=== PATIENT | male | born 1945 | race Caucasian/White ===

== ENCOUNTER → 2018-07-23 | Outpatient (CLI) | payer MEDICARE, OTHER | END | disposition home or self-care (01) | LOC: Rad HDHVI 12:48 | PROVIDERS: ATTEND Internal Medicine Cardiovascular Disease | DX: I08.0 Rheumatic disorders of both mitral and aortic valves (principal); J32.9 Chronic sinusitis, unspecified; R00.2 Palpitations; I10 Essential (primary) hypertension; J34.2 Deviated nasal septum | CPT/HCPCS: 70486; 93306 ==

== ENCOUNTER → 2018-09-18 | Outpatient (CLI) | payer MEDICARE, OTHER ==
[~2018-09-18] VITALS: Ht 172.7 cm; Wt 83.9 kg
== END | disposition home or self-care (01) ==
LOC: Rad HDHVI 07:49
PROVIDERS: ATTEND Internal Medicine Cardiovascular Disease
DX: I35.0 Nonrheumatic aortic (valve) stenosis (principal); I20.0 Unstable angina; N40.0 Benign prostatic hyperplasia without lower urinary tract symptoms; J32.9 Chronic sinusitis, unspecified; E78.00 Pure hypercholesterolemia, unspecified
CPT/HCPCS: 78452; 93017; 96374; A9500

== ENCOUNTER → 2019-10-20 | Outpatient (CLI) | payer MEDICARE, OTHER | END | disposition home or self-care (01) | LOC: Rad HDHVI 08:05 | PROVIDERS: ATTEND Internal Medicine Cardiovascular Disease | DX: I35.1 Nonrheumatic aortic (valve) insufficiency (principal); I10 Essential (primary) hypertension; I35.0 Nonrheumatic aortic (valve) stenosis | CPT/HCPCS: 93306 ==

== ENCOUNTER → 2020-01-21 | Outpatient (CLI) | payer MEDICARE, OTHER | END | disposition home or self-care (01) | LOC: Rad HDHVI 14:05 | PROVIDERS: ATTEND Internal Medicine Cardiovascular Disease | DX: I10 Essential (primary) hypertension (principal) ==

== ENCOUNTER → 2021-09-04 | Outpatient (CLI) | payer MEDICARE | END | disposition home or self-care (01) | LOC: Rad HDHVI 10:00 | PROVIDERS: ATTEND Internal Medicine Cardiovascular Disease | DX: I10 Essential (primary) hypertension (principal); E78.5 Hyperlipidemia, unspecified | CPT/HCPCS: 93880 ==

== ENCOUNTER → 2021-09-05 | Outpatient (CLI) | payer MEDICARE | END | disposition home or self-care (01) | LOC: Rad HDHVI 09:57 | PROVIDERS: ATTEND Internal Medicine Cardiovascular Disease | DX: I08.3 Combined rheumatic disorders of mitral, aortic and tricuspid valves (principal) | CPT/HCPCS: 93306 ==

== ENCOUNTER → 2021-09-07 | Outpatient (CLI) | payer MEDICARE ==
[~2021-09-07] VITALS: Ht 172.7 cm; Wt 93.4 kg
== END | disposition home or self-care (01) ==
LOC: Rad HDHVI 08:57
PROVIDERS: ATTEND Internal Medicine Cardiovascular Disease
DX: I20.0 Unstable angina (principal); E78.5 Hyperlipidemia, unspecified; G45.9 Transient cerebral ischemic attack, unspecified; R00.2 Palpitations; R06.02 Shortness of breath
CPT/HCPCS: 78452; 93017; 96374; A9500

== ENCOUNTER 2024-04-06 20:47 | Inpatient (IN) | payer MEDICARE ==
[~2024-04-06] VITALS: Ht 172.7 cm; Wt 96.4 kg
[2024-04-06 21:55] LABS: Basophils # (auto) 0 10 ^3/uL (0-0.2); Basophils % (auto) 0.7 % (0.0-2.0); Eosinophils # (auto) 0 10 ^3/uL (0-0.8); Eosinophils % (auto) 0.1 % (0.0-7.0); Hematocrit 43.7 % (41.0-53.0); Hemoglobin 15.1 g/dL (13.5-17.5); Lymphocytes # (auto) 0.2 10 ^3/uL (0.4-5.4); Lymphocytes % (auto) 2.9 % (10.0-50.0); Mean Corpuscular Hemoglobin 31.7 pg (28.0-32.0); Mean Corpuscular Hgb Conc. 34.6 g/dL (32.0-36.0); Mean Corpuscular Volume 91.7 fL (80.0-100.0); Monocytes # (auto) 0.3 10 ^3/uL (0-1.3); Monocytes % (auto) 6.1 % (0.0-12.0); Neutrophils # (auto) 4.9 10 ^3/uL (1.6-8.6); Neutrophils % (auto) 90.2 % (37.0-80.0); Platelet Count (auto) 112 10^3/uL (140-450); Red Blood Cells 4.77 10^6/uL (4.5-5.90); White Blood Cell 5.4 10^3/uL (4.4-10.8)
--- NOTE | 2024-04-06 22:00 | DVH ---
CHEST RADIOGRAPH Indication: gen weak Technique: Single frontal view of the chest was obtained COMPARISON: None FINDINGS: Lines and Tubes: None Lungs: Clear Pleura: No effusion. No pneumothorax. Cardiomediastinal contours: Unremarkable Bones: Unremarkable IMPRESSION: 1. No acute disease.
[2024-04-06 22:04] LABS: Chloride 101 mmol/L (98-107); Potassium 3.9 mmol/L (3.5-5.1); Sodium 135 mmol/L (136-145)
[2024-04-06 22:05] LABS: Anion Gap 9 (5-15); Calcium 9.3 mg/dL (8.7-10.4); Carbon Dioxide 25 mmol/L (20-31)
--- NOTE | 2024-04-06 22:06 | DVH ---
EXAM: CT HEAD WITHOUT CONTRAST INDICATION: gen weak, worse in BLE TECHNIQUE: CT of the head without intravenous contrast. Radiation Dose : 1. Head: CT Dose: CTDI volume is 56 mGy. Dose-length product is 900 mGy*cm The dose indicators for CT are the volume Computed Tomography (CT) Dose Index (CTDIvol) and the Dose Length Product (DLP), and are measured in units of mGy and mGy-cm, respectively. These indicators are not patient dose, but values generated from the CT scanner acquisition factors. The report includes radiation exposure data for exposures received during this examination. COMPARISON: None FINDINGS: There is no evidence of acute intracranial hemorrhage, extra-axial collection, mass effect, midline s hift, herniation or hydrocephalus. The ventricles, sulci and cisterns are age appropriate. The moy-white differentiation is intact. Patchy periventricular and subcortical white matter hypoattenuation is nonspecific but may be related to small vessel ischemic disease. The visualized paranasal sinuses and mastoid air cells are clear. The surrounding soft tissues and osseous structures are unremarkable. IMPRESSION: No acute intracranial abnormality. Radiation optimization: All CT scans at this facility use at least one of these dose optimization coleman hniques: automated exposure control mA and/or kV adjustment per patient size (includes targeted exam s where dose is matched to clinical indication) or iterative reconstruction.
[2024-04-06 22:10] LABS: BUN/Creatinine Ratio 14.4 (10.0-20.0); Blood Urea Nitrogen 15 mg/dL (9-23); Glucose 130 mg/dL (74-106)
--- NOTE | 2024-04-06 23:06 | ED.PDOC ---
History of Present Illness HPI Comments 78 y/o M, with a BPH and cardiac valve disease, presents with daughter for c/o generalized weakness and multiple falls today. Patient and daughter state he is normally able to ambulate without assistance. Daughter states he woke up with a fever of 101 this morning, then intermittently throughout the day was having lower extremity weakness and falls. She states that intermittently he is able to stand and walk unassisted, however will later develop lower extremity weakness and fall. Patient states he is currently feeling too weak in his legs to ambulate. He denies any pain. He states he has had some nausea but no vomiting. He denies any diarrhea, constipation or urinary symptoms. He denies any pain or injury due to falling. Chief Complaint: General Weakness Time Seen by MD: 23:00 Reviewed Notes: Nurses Notes, Medications, Allergies Allergies: Coded Allergies: Levofloxacin (Verified Allergy, Unknown, 09/18/18) Quinolones (Verified Allergy, Unknown, 09/18/18) Information Source: Patient Mode of Arrival: Wheelchair Severity: Moderate Timing: Other (see HPI) Duration: Other (see HPI) Prehospital treatment: Other (see HPI) Past Medical History Past Medical History (Other): BPH, heart murmurs, heart valve prolapse Surgical History: Hernia Repair Family History Family History: Unknown Social History Smoker: Non-Smoker Alcohol: Denies ETOH Use Drugs: Denies Drug Use Lives In: Home Constitutional: denies: chills, diaphoresis, fatigue, fever, malaise, sweats, weakness, others EENTM: denies: blurred vision, double vision, ear bleeding, ear discharge, ear drainage, ear pain, ear ringing, eye pain, eye redness, hearing loss, mouth pain, mouth swelling, nasal discharge, nose bleeding, nose congestion, nose pain, photophobia, tearing, throat pain, throat swelling, voice changes, others Respiratory: denies: cough, hemoptysis, orthopnea, SOB at rest, shortness of breath, SOB with excertion, stridor, wheezing, others Cardiovascular: denies: chest pain, dizzy spells, diaphoresis, Dyspnea on exertion, edema, irregular heart beat, left arm pain, lightheadedness, palpitations, PND, syncope, others Gastrointestinal: denies: abdomen distended, abdominal pain, blood streaked bowels, constipated, diarrhea, dysphagia, difficulty swallowing, hematemesis, melena, nausea, poor appetite, poor fluid intake, rectal bleeding, rectal pain, vomiting, others Genitourinary: denies: burning, dysuria, flank pain, frequency, hematuria, incontinence, penile discharge, penile sore, pain, testicle pain, testicle swelling, urgency, others Neurological: denies: dizziness, fainting, headache, left sided numbness, left sided weakness, numbness, paresthesia, pre-existing deficit, right sided numbness, right sided weakness, seizure, speech problems, tingling, tremors, weakness, others Musculoskeletal: denies: back pain, gout, joint pain, joint swelling, muscle pain, muscle stiffness, neck pain, others Integumetry: denies: bruises, change in color, change in hair/nails, dryness, laceration, lesions, lumps, rash, wounds, others Allergic/Immunocompromised: denies: Difficulty Healing, Frequent Infections, Hives, Itching, others Hematologic/Lymphatic: denies: anemia, blood clots, easy bleeding, easy bruising, swollen glands, others Endocrine: denies: excessive hunger, excessive sweating, excessive thirst, excessive urination, flushing, intolerance to cold, intolerance to heat, unexplained weight gain, unexplained weight loss, others Psychiatric: denies: anxiety, bipolar disorder, depression, hopeless, panic disorder, schizophrenia, sleepless, suicidal, others All Other Systems: Reviewed and Negative Physical Exam General Appearance: No Apparent Distress HEENT: Normal ENT Inspection Neck: Full Range of Motion, Non-Tender, Normal Inspection, Supple Respiratory: Lungs Clear, No Accessory Muscle Use, No Respiratory Distress, Normal Breath Sounds Cardiovascular: No Edema, No JVD, Regular Rate/Rhythm Breast Exam: Deferred Gastrointestinal: Non Tender, Soft Genitalia: Deferred Pelvic: Deferred Rectal: Deferred Extremities: Normal inspection, Normal range of motion, Non-tender, No pedal edema Neurologic: Alert, Normal Affect, Normal Mood, No Sensory Deficits, Other (Moves all extremities. Able to stand, but requires assistance.) Cerebellar Function: NOT DONE Reflexes: NOT DONE Skin: Dry, Normal Color, Warm Lymphatic: NOT DONE Was a procedure done? Was a procedure done?: No EKG EKG : Comments Sinus tach with possible supraventricular bigeminy, rate 101, normal intervals, left axis deviation, possible old inferior infarct, nonspecific T change. Differential Dx Considerations may include: UTI, viral syndrome, other infectious process such as pneumonia, hypovolemia, electrolyte imbalance, CVA, TIA, arrhythmia, OK, among others X-Ray, Labs, Meds, VS Vital Signs Date Time Temp Pulse Resp B/P (MAP) Pulse Ox O2 Delivery O2 Flow Rate FiO2 04/06/24 21:09 101 04/06/24 21:04 99.6 99 16 133/57 (82) 95 Lab Test 04/06/24 23:27 04/06/24 22:38 04/06/24 21:33 04/06/24 21:03 Range/Units Urine Color Yellow Yellow Urine Clarity Turbid H Clear Urine pH 5.5 5.0-9.0 Urine Specific [place] 1.028 1.001-1.035 Urine Protein 1+ H Negative Urine Ketones 1+ H Negative Urine Blood Negative Negative /uL Urine Nitrite Negative Negative Urine Bilirubin Negative Negative Urine Urobilinogen Normal Negative mg/dL Urine Leukocyte Esterase Negative Negative /uL Urine RBC 1 0 - 3 /hpf Urine WBC 3 0 - 3 /hpf Urine Squamous Epithelial Cells Few <5 /hpf Urine Bacteria None seen None Seen /hpf Urine Mucus Many None Seen Urine Glucose Normal Normal mg/dL Troponin I High Sensitivity 38 37 </=54 ng/L White Blood Count 5.4 4.4-10.8 10^3/uL Red Blood Count 4.77 4.5-5.90 10^6/uL Hemoglobin 15.1 13.5-17.5 g/dL Hematocrit 43.7 41.0-53.0 % Mean Corpuscular Volume 91.7 80.0-100.0 fL Mean Corpuscular Hemoglobin 31.7 28.0-32.0 pg Mean Corpuscular Hemoglobin Concent 34.6 32.0-36.0 g/dL Red Cell Distribution Width 14.0 11.8-14.3 % Platelet Count 112 L 140-450 10^3/uL Mean Platelet Volume 8.3 6.9-10.8 fL Neutrophils (%) (Auto) 90.2 H 37.0-80.0 % Lymphocytes (%) (Auto) 2.9 L 10.0-50.0 % Monocytes (%) (Auto) 6.1 0.0-12.0 % Eosinophils (%) (Auto) 0.1 0.0-7.0 % Basophils (%) (Auto) 0.7 0.0-2.0 % Neutrophils # (Auto) 4.9 1.6-8.6 10 ^3/uL Lymphocytes # (Auto) 0.2 L 0.4-5.4 10 ^3/uL Monocytes # (Auto) 0.3 0-1.3 10 ^3/uL Eosinophils # (Auto) 0 0-0.8 10 ^3/uL Basophils # (Auto) 0 0-0.2 10 ^3/uL Nucleated Red Blood Cells 0.0 % Sodium Level 135 L 136-145 mmol/L Potassium Level 3.9 3.5-5.1 mmol/L Chloride Level 101 98-107 mmol/L Carbon Dioxide Level 25 20-31 mmol/L Anion Gap 9 5-15 Blood Urea Nitrogen 15 9-23 mg/dL Creatinine 1.04 0.700-1.30 mg/dL Glomerular Filtration Rate Calc 74 >90 mL/min BUN/Creatinine Ratio 14.4 10.0-20.0 Serum Glucose 130 H 74-106 mg/dL Calcium Level 9.3 8.7-10.4 mg/dL B-Type Natriuretic Peptide 123.23 0-100 pg/mL POC Glucose 126 H 70-106 mg/dl [place] [id number] Ph: [phone] DIAGNOSTIC IMAGING Diagnostic Imaging Report : [id number] Signed PATIENT: SANDIE STEIN ACCT: [id number] UNIT: [id number] : 1945 LOC: ER ROOM / BED: / AGE / SEX: 78 / M ADM STATUS: REG ER SERVICE 24 ORDERING PHYSICIAN: DAWIT TORRES MD PROCEDURE(s): HWOCT - HEAD WITHOUT CONTRAST REASON: gen weak, worse in BLE ORDER NUMBER(s): [id number], ACCESSION NUMBER(s): [id number] EXAM: CT HEAD WITHOUT CONTRAST INDICATION: gen weak, worse in BLE TECHNIQUE: CT of the head without intravenous contrast. Radiation Dose : 1. Head: CT Dose: CTDI volume is 56 mGy. Dose-length product is 900 mGy*cm The dose indicators for CT are the volume Computed Tomography (CT) Dose Index (CTDIvol) and the Dose Length Product (DLP), and are measured in units of mGy and mGy-cm, respectively. These indicators are not patient dose, but values generated from the CT scanner acquisition factors. The report includes radiation exposure data for exposures received during this examination. COMPARISON: None FINDINGS: There is no evidence of acute intracranial hemorrhage, extra-axial collection, mass effect, midline shift, herniation or hydrocephalus. The ventricles, sulci and cisterns are age appropriate. The moy-white differentiation is intact. Patchy periventricular and subcortical white matter hypoattenuation is nonspecific but may be related to small vessel ischemic disease. The visualized paranasal sinuses and mastoid air cells are clear. The surrounding soft tissues and osseous structures are unremarkable. IMPRESSION: No acute intracranial abnormality. Radiation optimization: All CT scans at this facility use at least one of these dose optimization techniques: automated exposure control mA and/or kV adjustment per patient size (includes targeted exams where dose is matched to clinical indication) or iterative reconstruction. ATED BY: RUFINO YU DO DICTATED DATE/TIME: 04/06/242203 SIGNED BY: RUFINO YU DO SIGNED DATE/TIME: 04/06/242203 CC: [place] [id number] Ph: [phone] DIAGNOSTIC IMAGING Diagnostic Imaging Report : [id number] Signed PATIENT: SANDIE STEIN ACCT: [id number] UNIT: [id number] : 1945 LOC: ER ROOM / BED: / AGE / SEX: 78 / M ADM STATUS: REG ER SERVICE 23 ORDERING PHYSICIAN: DAWIT TORRES MD PROCEDURE(s): CXRP - CHEST PORTABLE REASON: gen weak ORDER NUMBER(s): [id number], ACCESSION NUMBER(s): [id number] CHEST RADIOGRAPH Indication: gen ishmael Technique: Single frontal view of the chest was obtained COMPARISON: None FINDINGS: Lines and Tubes: None Lungs: Clear Pleura: No effusion. No pneumothorax. Cardiomediastinal contours: Unremarkable Bones: Unremarkable IMPRESSION: 1. No acute disease. ATED BY: DANIELLE MCKINNEY MD DICTATED DATE/TIME: 04/06/242157 SIGNED BY: DANIELLE MCKINNEY MD SIGNED DATE/TIME: 04/06/242157 CC: X-Ray, Labs, Meds, VS Comment 78-year-old male with a history of prostate enlargement and cardiac valve disease brought in by daughter for evaluation of generalized weakness, greatest in the lower extremities, and multiple falls today. Vitals remarkable for temperature 99.6, heart rate 101, BP 133/57 Exam remarkable for inability to stand without assistance Head CT unremarkable Chest x-ray unremarkable EKG sinus tach, possible supraventricular bigeminy, nonspecific T changes CBC, basic metabolic panel, BNP and serial troponins unremarkable for any abnormality of acute significance UA protein, ketones and mucous Patient treated with the following in the ED: 1 L 0.9 normal saline IV bolus On re-evaluation, patient is exam is unchanged. Plan is to admit the patient for neurology and PT OT evaluation. Time of 1ST Reevaluation: 23:30 Reevaluation 1ST: Unchanged Time of 2ND Reevaluation: 01:07 Reevaluation 2ND: Unchanged Patient Education/Counseling: Diagnosis, Treatment Family Education/Counseling: No Family Present Departure 1 Departure Time of Disposition: 01:07 Impression: Primary Impression: Lower extremity weakness Qualified Codes: R29.898 - Other symptoms and signs involving the musculoskeletal system Additional Impression: Frequent falls Disposition: 09 ADMITTED INPATIENT Admit to: Tele Condition: Guarded Critical Care Note Critical Care Time?: No Stability Stability form required: No Heart Score Heart Score: Heart Score Response (Comments) Value History N/A 0 EKG N/A 0 Age N/A 0 Risk Factors N/A 0 Troponin N/A 0 Total 0 I personally scribed for DAWIT TORRES MD ([email or web address]) on 04/06/24 at 23:06. Electronically submitted by Juarez Quick ([email or web address]). I personally scribed for DAWIT TORRES MD ([email or web address]) on 04/06/24 at 23:21. Electronically submitted by Juarez Quick ([email or web address]). DAWIT TORRES MD Apr 06, 2024 23:06
[2024-04-06 23:27] LABS: Urine Bacteria None Seen /hpf (None Seen)
[2024-04-06 23:46] LABS: Urine Blood Negative /uL (Negative); Urine Clarity Turbid (Clear); Urine Color Yellow (Yellow); Urine Mucus MANY (None Seen); Urine Protein, UAD 1+ (Negative); Urine Specific Gravity 1.028 (1.001-1.035); Urine Urobilinogen Normal (Negative); Urine WBC 3 /hpf (0 - 3); Urine pH 5.5 (5.0-9.0)
[2024-04-07] VITALS (8 sets, daily range): BP systolic 117–182; BP diastolic 52–67; PULSE 81–107; RESP 13–20; TEMP 98–102.6; O2SAT 91–97
[2024-04-07] MEDS ORDERED: ONDANSETRON HCL 4 MG/2 ML VIAL IV PRN (01:15)
[2024-04-07] MEDS: SODIUM CHLORIDE 0.9% 1,000 ML IV ONE (01:15)
[2024-04-07] MEDS ORDERED: MORPHINE SULFATE INJ 2 MG/ml SYRG IV PRN ×2 (01:15)
[2024-04-07] MEDS ORDERED: ENOXAPARIN SOD 40 MG/0.4 ML SYRINGE SC SCH (01:15)
[2024-04-07] MEDS ORDERED: NITROGLYCERIN 0.4 MG SL TAB SL PRN (01:15)
--- NOTE | 2024-04-07 02:06 | DVHHPRES ---
History of Present Illness Resident Creating Document: ALVARO AMOR Reason for Visit: pre- syncope History of Present Illness 78-year-old male patient with past medical history of benign prostatic hyperplasia changes and cardiac valve disease who was brought to the emergency department by his daughter with a chief complaint of generalized weakness and multiple fall episodes today after he started feeling weakness in his lower extremities. Patient is able to ambulate without assistance, patient's daughter reports that the patient has had similar episodes in the past but never like this, he mentioned he felt lhis knees went backwards and he started feeling un steady afterwards. Patient also reports to having some nausea and fever. He denies any chest pain, palpitations abdominal pain, or shortness of breadth. Past Medical History Benign prostatic hyperplasia Type 1 obesity Cardiovascular disease Bilateral leg weakness Hypertension Past Surgical History Cataract surgery Family History: None Smoke: No ALCOHOL: none Drugs: None Past Social History Patient's life with his daughter Review of Systems Constitutional: Yes: Fever Respiratory: Other Genitourinary: Other Musculoskeletal: other Skin: Other Neurological: Weakness Allergies: Coded Allergies: Levofloxacin (Verified Allergy, Unknown, 09/18/18) Quinolones (Verified Allergy, Unknown, 09/18/18) Medications Current Medications Medications Dose Ordered Sig/Antonette Route Start Time Stop Time Status Last Admin Dose Admin Sodium Chloride 1,000 ml @ 60 mls/hr [id number] IV 04/07/24 01:15 Ondansetron HCl 4 mg Q4HP PRN IV 04/07/24 01:15 Acetaminophen 650 mg Q6HP PRN PO 04/07/24 01:15 Morphine Sulfate 2 mg Q4HPRN PRN IV 04/07/24 01:15 Enoxaparin Sodium 40 mg DAILY SC 04/07/24 01:15 Nitroglycerin 0.4 mg Q5MINP PRN SL 04/07/24 01:15 Morphine Sulfate 2 mg Q30M PRN IV 04/07/24 01:15 Exam Vital Signs Vital Signs Date Time Temp Pulse Resp B/P (MAP) Pulse Ox O2 Delivery O2 Flow Rate FiO2 04/06/24 21:09 101 04/06/24 21:04 99.6 16 133/57 (82) 95 Exam Examination General Appearance: Alert, Oriented X3, Cooperative, No acute distress HEENT: EOMI Respiratory: Clear to auscultation, Normal air movement Cardiovascular: Regular rate, Normal S1, Normal S2 Abdominal: Normal bowel sounds Extremities: No cyanosis, No edema, Normal pulses, No tenderness/swelling Skin: No rashes, No breakdown Neuro:Normal speech, Strength at 5/5 X4 ext, Normal tone, Sensation intact, Cranial nerves 3-12 NL, Reflexes 2+ Psych/Mental Status: Mental status NL, Mood NL Labs/Xrays Labs Test 04/06/24 23:27 04/06/24 22:38 04/06/24 21:33 04/06/24 21:03 Range/Units Urine Color Yellow Yellow Urine Clarity Turbid H Clear Urine pH 5.5 5.0-9.0 Urine Specific [place] 1.028 1.001-1.035 Urine Protein 1+ H Negative Urine Ketones 1+ H Negative Urine Blood Negative Negative /uL Urine Nitrite Negative Negative Urine Bilirubin Negative Negative Urine Urobilinogen Normal Negative mg/dL Urine Leukocyte Esterase Negative Negative /uL Urine RBC 1 0 - 3 /hpf Urine WBC 3 0 - 3 /hpf Urine Squamous Epithelial Cells Few <5 /hpf Urine Bacteria None seen None Seen /hpf Urine Mucus Many None Seen Urine Glucose Normal Normal mg/dL Troponin I High Sensitivity 38 </=54 ng/L White Blood Count 5.4 4.4-10.8 10^3/uL Red Blood Count 4.77 4.5-5.90 10^6/uL Hemoglobin 15.1 13.5-17.5 g/dL Hematocrit 43.7 41.0-53.0 % Mean Corpuscular Volume 91.7 80.0-100.0 fL Mean Corpuscular Hemoglobin 31.7 28.0-32.0 pg Mean Corpuscular Hemoglobin Concent 34.6 32.0-36.0 g/dL Red Cell Distribution Width 14.0 11.8-14.3 % Platelet Count 112 L 140-450 10^3/uL Mean Platelet Volume 8.3 6.9-10.8 fL Neutrophils (%) (Auto) 90.2 H 37.0-80.0 % Lymphocytes (%) (Auto) 2.9 L 10.0-50.0 % Monocytes (%) (Auto) 6.1 0.0-12.0 % Eosinophils (%) (Auto) 0.1 0.0-7.0 % Basophils (%) (Auto) 0.7 0.0-2.0 % Neutrophils # (Auto) 4.9 1.6-8.6 10 ^3/uL Lymphocytes # (Auto) 0.2 L 0.4-5.4 10 ^3/uL Monocytes # (Auto) 0.3 0-1.3 10 ^3/uL Eosinophils # (Auto) 0 0-0.8 10 ^3/uL Basophils # (Auto) 0 0-0.2 10 ^3/uL Nucleated Red Blood Cells 0.0 % Sodium Level 135 L 136-145 mmol/L Potassium Level 3.9 3.5-5.1 mmol/L Chloride Level 101 98-107 mmol/L Carbon Dioxide Level 25 20-31 mmol/L Anion Gap 9 5-15 Blood Urea Nitrogen 15 9-23 mg/dL Creatinine 1.04 0.700-1.30 mg/dL Glomerular Filtration Rate Calc 74 >90 mL/min BUN/Creatinine Ratio 14.4 10.0-20.0 Serum Glucose 130 H 74-106 mg/dL Calcium Level 9.3 8.7-10.4 mg/dL B-Type Natriuretic Peptide 123.23 0-100 pg/mL POC Glucose 126 H 70-106 mg/dl Assessment/Plan Assessment/Plan SIRS? , source unknown -workup in progress Frequent falls due to bilateral leg weakness likely ?dehydration ?medication induced ?vasovagal ?reflex -echocardiogram -orthostatic vitals and -head CT was negative Sinus tachycardia -treat underlying condition asymptomatic thrombocytopenia -monitor Benign prostatic hyperplasia -tamsulosin 0.4 mg -outpatient follow-up with Urology case discussed with Dr.Siddiqui saenz of care discussed with the patient for 43 minutes code status: full code Plan discussed with: Patient My Orders Orders - ALVARO AMOR RESIDENT Procedure Category Date Status Time Admit ADMIT 04/07/24 Transmitted 01:12 Allergies CLARISSA 04/07/24 In Process 01:12 Code Status CODE 04/07/24 Transmitted 01:12 2 Gm Sodium Diet DIET 04/07/24 Transmitted Breakfast Sodium Chloride 0.9% PHA 04/07/24 In Process 01:15 Ondansetron Hcl PHA 04/07/24 In Process (Zofran) 01:15 Fall Risk Precautions CLARISSA 04/07/[address] 01:12 Complete Blood Count LAB 04/08/24 Verified 04:00 Comprehensive LAB 04/08/24 Verified Metabolic Panel 04:00 Cardiac DIET 04/07/24 Transmitted Diet-2gna,Lofat,Lochol Breakfast Echo 2d Mode Cardiac US 04/07/24 Logged DOP 01:12 Acetaminophen Tablet PHA 04/07/24 In Process (Tylenol Tablet) 01:15 Morphine Sulfate PHA 04/07/24 In Process Injection 01:15 Enoxaparin Sodium PHA 04/07/24 In Process (Lovenox) 01:15 Nitroglycerin PHA 04/07/24 In Process Sublingual (Ntrostat 01:15 Morphine Sulfate PHA 04/07/24 In Process Injection 01:15 Oxygen By Nasal RT 04/07/24 Transmitted Cannula 01:12 Stat Ekg For Chest [facility] 04/07/24 In Process Pain 01:12 Notify Md Of Changes [facility] 04/07/24 In Process From Base 01:12 Hammer Driver For [facility] 04/07/24 In Process 24 Hours 01:12 Emergency Dysrhythmia [facility] 04/07/24 In Process Protocol 01:12 Rhythm Strips Once [facility] 04/07/24 In Process Every Shift 01:12 Orthostatic Vital ORDERS 04/07/24 Transmitted Signs 01:16 Date of Service: Apr 07, 2024 Billing Provider: SIM NGO MD Common Visit Codes: [id number] INP/OBS CARE (MOD) Secondary Visit Codes: [id number]-[id number] CARE PLAN 30 MINUTES ALVARO AMOR RESIDENT Apr 07, 2024 02:06 SIM NGO MD Apr 07, 2024 10:27
[2024-04-07] MEDS: ACETAMINOPHEN 325 MG TAB PO PRN (02:45)
[2024-04-07] MEDS: SODIUM CHLORIDE 0.9% 1,000 ML IV SCH ×2 (03:21→20:30)
[2024-04-07 04:46] LABS: Rapid Influenza A Negative (Negative); Rapid Influenza B Negative (Negative)
[2024-04-07 04:47] LABS: COVID19 ANTIGEN SOFIA FIA NEGATIVE (NEGATIVE)
[2024-04-07 07:53] LABS: Basophils # (auto) 0 10 ^3/uL (0-0.2); Basophils % (auto) 0.6 % (0.0-2.0); Eosinophils # (auto) 0 10 ^3/uL (0-0.8); Eosinophils % (auto) 0.1 % (0.0-7.0); Hematocrit 42.5 % (41.0-53.0); Hemoglobin 14.7 g/dL (13.5-17.5); Lymphocytes # (auto) 0.1 10 ^3/uL (0.4-5.4); Lymphocytes % (auto) 3.6 % (10.0-50.0); Mean Corpuscular Hgb Conc. 34.5 g/dL (32.0-36.0); Mean Corpuscular Volume 92.7 fL (80.0-100.0); Monocytes # (auto) 0.1 10 ^3/uL (0-1.3); Monocytes % (auto) 3.4 % (0.0-12.0); Neutrophils # (auto) 3.9 10 ^3/uL (1.6-8.6); Neutrophils % (auto) 92.3 % (37.0-80.0); Nucleated Red Blood Cells % 0.2 %; Platelet Count (auto) 114 10^3/uL (140-450); Red Blood Cells 4.58 10^6/uL (4.5-5.90); White Blood Cell 4.2 10^3/uL (4.4-10.8)
[2024-04-07 07:56] LABS: Alanine Aminotransferase 40 U/L (7-40); Albumin 3.8 g/dL (3.2-4.8); Alkaline Phosphatase 65 U/L (46-116); Anion Gap 12 (5-15); Aspartate Aminotransferase 37 U/L (13-40); BUN/Creatinine Ratio 16.2 (10.0-20.0); Bilirubin, Total 0.6 mg/dL (0.2-1.0); Blood Urea Nitrogen 18 mg/dL (9-23); Calcium 9.1 mg/dL (8.7-10.4); Carbon Dioxide 22 mmol/L (20-31); Chloride 101 mmol/L (98-107); Glucose 131 mg/dL (74-106); Potassium 3.8 mmol/L (3.5-5.1); Sodium 135 mmol/L (136-145); Total Protein 5.7 g/dL (5.7-8.2)
--- NOTE | 2024-04-07 09:00 | DVH ---
EXAMINATION: MRI BRAIN HEAD WO CONTRAST INDICATION: Multiple fall ischemic midbrain COMPARISON: CT HEAD WITHOUT CONTRAST on DOS: 04/06/24 TECHNIQUE: Multiplanar, multisequence magnetic resonance imaging of the brain was performed without the use of i ntravenous contrast. FINDINGS: There is no restricted diffusion. There are few scattered punctate hyperintense T2 foci in the suprat entorial white matter compatible with minimal chronic microvascular ischemic changes. There is no juliet dence of hemorrhage, mass, mass effect or midline shift. There is no hydrocephalus or extra-axial flu id collection. The visualized intracranial vasculature demonstrates appropriate flow-voids. The sagit jeet midline structures appear unremarkable. The craniocervical junction is within normal limits. The calvarium demonstrates normal marrow signal. The paranasal sinuses and mastoid air cells are clear. IMPRESSION: 1. Unremarkable noncontrast MRI brain. HS:Y
[2024-04-07 09:05] LABS: Free T3 2.35 pg/mL (2.3-4.2)
[2024-04-07 09:06] LABS: Free T4 (Free Thyroxine) 1.26 ng/dL (0.89-1.76)
[2024-04-07] MEDS: cefTRIAXone 1GM/50ML D5W 50 ML IV SCH (10:56)
--- NOTE | 2024-04-07 13:12 | ECG ---
[facility] Test Date: 2024-04-06 Test Time: 21:09:34 Pat Name: PRADEEP STEIN Department: ER Room: [facility] Gender: M Refrigeration Houseman: CHRISTIE : 1945 Requested By: DAWIT JOY Order Number: [id number] Reading MD: Javi Lu Measurements Intervals [place] Rate: 101 P: -1 CA: 174 QRS: 22 QRSD: 88 T: 70 QT: 331 QTc: 429 Interpretive Statements Sinus tachycardia Supraventricular bigeminy Probable left atrial enlargement Abnormal R-wave progression, early transition Electronically Signed On 04-10-2024 17:16:45 PST by Javi Lu Please click the below link to view image of tracing.
--- NOTE | 2024-04-07 13:31 | DVHSR ---
APPROVED REPORT EXAM: Two-dimensional and M-mode echocardiogram with Doppler and color Doppler. Blood Pressure: 114/56 mmHg INDICATION Presyncope RISK FACTORS Height: 5'8", Weight: 200 DIMENSIONS LVDd3.8 (3.8-5.7cm)LA (2D)3.7 (1.9-4.0cm)Aortic Root3.4 (2.0-3.7cm) LVDs2.7 (2.5-4.0cm)LA (MM) (1.9-4.0cm)Aortic Cusp Exc1.4 (1.5-2.0cm) EF (%) 60.0 (55-70%)Rt. Atrium3.8 (1.9-4.0cm)Asc. Aorta cm IVSd1.3 (0.7-1.1cm)RV (D)4.2 (1.8-2.4cm) PWd1.2 (0.7-1.1cm) Mitral Valve MitralMitral Stenosis E wave0.77m/sMV Mean GR.mmHg A wave0.79m/sMV Peak GR.mmHg E/A ratio1.02D MVAcm2 DECEL [id number] 1/2 Timems Aortic Valve Aortic ValveAortic Stenosis V11.68m/Henrry Mean GR.13mmHg V22.52m/Henrry Peak GR.25mmHg LVOT Diameter2.3 (1.8-2.4cm)Doppler AVA2.77cm2 AI P 1/2 Bhmp726.52ms Pulmonic Valve V21.23m/s Tricuspid Valve TR Velocity2.41m/s [id number] Other Information Technically limited study due to body habitus. Conclusion Normal left ventricular size and dimension. Normal left ventricular systolic function estimated ejec tion fraction 55%. There is a grade 1 diastolic dysfunction. Normal right ventricular size and dimension. Normal right ventricular systolic function. Normal biatrial size and dimension. The aortic valve is mildly thickened and sclerotic. There is [id number] aortic valve regurgita tion. There is mild tricuspid valve regurgitation. The mitral valve appears normal structure and function. The pulmonary valve is normal structure and function. No significant pericardial effusion. New
[2024-04-07] MEDS ORDERED: hydrALAZINE HCL 20 MG/ML VL IV PRN (15:00)
[2024-04-07] MEDS: TAMSULOSIN HYDROCHLORIDE 0.4 MG CAP PO SCH (17:34)
[2024-04-07] MEDS ORDERED: LABETALOL HCL 20 MG/4 ML VL IV PRN (18:15)
--- NOTE | 2024-04-07 18:31 | DVHPNRES ---
Progress Note Date Seen: Apr 07, 2024 Resident Creating Document: JHAJNOEMY Villela RESIDENT Medical Necessity Reason Pt with a Central, PICC or Fol: No Subjective Review of Systems Patient is a 78-year-old with a past medical history of BPH on tamsulosin presented to the ED with a chief complaint of leg weakness and mechanical fall for 1 day prior to admission. Patient reports that his legs have been feeling weak than usual for the last 4-5 months. Patient reported that since Saturday evening on 04/05/2024 he has been feeling more weak than usual. The next day while he was at home his weakness progressed the patient was able to walk slowly but experienced 2-3 falls following which he was brought to the hospital for further evaluation. Patient reported feeling feverish and some nausea. Patient denied chest pain palpitations, abdominal pain, shortness of breath. Patient did not report any recent sick contacts, denied recent travel, no diarrheal illness, no cough, no rashes on the body, no difficulty swallowing, no burning pain on urination or frequency or hesitancy, no chills or rigors. Past medical history: BPH, aortic valve sclerosis Past surgical history: cataract, hernia Family history: None Social history: Patient lives with denies smoking, alcohol, drug use Home meds: Tamsulosin, multivitamins, herbal supplements Review of systems Patient seen and examined at the bedside. Patient is alert and oriented to time, place and person. Patient reports no shortness a breath, chest pain, abdominal pain, dysuria, diarrhea or constipation. Patient reports that his legs have been feeling weaker than usual since the past few days. Patient's vitals show BP 151/67 mmHg, heart rate 98 beats per minute, temperature 98.5 F. patient had episode of fever in the afternoon recorded up to 102.6 degree F following which acetaminophen was given which relieved the fever. Sample for blood culture, urine culture, respiratory culture has been sent. Objective vital signs Vital Sign Date Time Temp Pulse Resp B/P (MAP) Pulse Ox O2 Delivery O2 Flow Rate FiO2 04/07/24 17:35 99.1 04/07/24 16:31 96 18 138/59 (85) 91 04/07/24 09:21 Room Air* 0 21 Total Intake and Output 04/06/24 04/06/24 04/07/24 15:00 23:00 07:00 Intake Total 180 ml Balance 180 ml medications Current Medications Medications Dose Ordered Sig/Antonette Route Start Time Stop Time Status Last Admin Dose Admin Ondansetron HCl 4 mg Q4HP PRN IV 04/07/24 01:15 Acetaminophen 650 mg Q6HP PRN PO 04/07/24 01:15 04/07/24 15:50 650 MG Morphine Sulfate 2 mg Q4HPRN PRN IV 04/07/24 01:15 Nitroglycerin 0.4 mg Q5MINP PRN SL 04/07/24 01:15 Morphine Sulfate 2 mg Q30M PRN IV 04/07/24 01:15 Tamsulosin HCl 0.4 mg QPM PO 04/07/24 18:00 04/07/24 17:34 0.4 MG Ceftriaxone Sodium 50 ml @ 100 mls/hr DAILY@09 IV 04/07/24 09:00 04/07/24 10:56 100 MLS/HR Labetalol HCl 10 mg Q4HP PRN IV 04/07/24 18:15 Examination Physical Examination Gen - no pallor, no icterus, no cyanosis, no clubbing, no LAD, no edema . Skin - Patients skin is warm and dry. HEENT - normocephalic, atraumatic, moist mucous membranes. Neck - full ROM, no LAD, no JVD Pulmonary - B/L vesicular breath sounds. no crackles , no wheezing, no stridor. cardiovascular - normal S1,S2 heard. no murmurs heard. peripheral pulses normal radial 2+, pedal 2+. capillary refill normal <2 secs. GI - soft abdomen without tenderness to palpation . no hepatospleenomegaly. Bowel sounds normoactive Neurological - Patient is A/O X 3 . Bilateral upper extremity tone normal, bilateral lower extremity tone slightly increased, Bilateral upper extremity strength 5/5, bilateral lower extremity strength 5/5, deep tendon reflexes 2+, no facial droop, normal speech, resting tremor noted in right hand on examination, no sensory deficiets, short stepped wide-based gait. Cranial nerves 3 4 and 6 normal, pupils isocoric and reactive, normal facial sensation, normal cranial nerve 7 exam, no auditory deficit, cranial nerve 9, 10, 11, 12 normal exam laboratory and microbiology Laboratory Tests 04/07/24 03:40 Test 04/07/24 03:40 Range/Units Serum Glucose 131 H 74-106 mg/dL Problem List/Assessment/Plan Problem List/Assessment/Plan Assessment and plan # SIRS - on admission patient had temperature more than 100.1 F and heart rate more than 90 - ruling out infection with the urine culture, blood culture, respiratory culture - no rash on the body - no history of recent travel, no sick contacts, no diarrheal illness, no dysuria - lactic acid within normal limits - HIV 1 and 2 antibody negative - COVID-19 negative, influenza type a and B negative - hepatitis B surface antibody and hepatitis C antibody # bilateral lower extremity weakness ? - on neuro exam bilateral lower extremity strength 5/5, knee and ankle reflex 2+, plantar reflex downgoing - normal cerebellar exam - short stepped wide based gait with poor balance - vitamin B12 normal - physical therapy evaluation-patient walked 50 ft with front wheel walker - tele neuro consult ? Suspected early onset Parkinson's disease # Ruled out stroke - head CT showed no acute intracranial abnormality - brain MRI unremarkable # History of BPH - Patient continued on tamsulosin Goals of care discussed with the patient and the family for over 25 minutes. Full code Plan discussed with Dr. Larry Plan discussed with: Patient, Spouse, Daughter My Orders My Orders Orders - NOEMY LORD Procedure Category Date Status Time Drug Screen LAB 04/07/24 Logged 10:59 [place] [facility] Consult CONS 04/07/24 Transmitted 10:59 Hepatitis B Surface LAB 04/07/24 In Process Antigen 11:41 Hepatitis C Antibody LAB 04/07/24 In Process 11:41 Lactic Acid W/ Reflex LAB 04/07/24 Logged Order 18:01 Labetalol Hcl PHA 04/07/24 In Process (Labetalol Hcl) 18:15 Date of Service: Apr 07, 2024 Billing Provider: HATTIE STEWART MD Common Visit Codes: [id number] INP/OBS CARE(HIGH) NOEMY LORD RESIDENT Apr 07, 2024 18:30 HATTIE STEWART MD Apr 08, 2024 22:55
[2024-04-07 21:10] LABS: Urine Bacteria None Seen /hpf (None Seen)
[2024-04-07 21:21] LABS: Urine Blood Negative /uL (Negative); Urine Budding Yeast OCCASIONAL /hpf (None Seen); Urine Clarity Turbid (Clear); Urine Color Yellow (Yellow); Urine Mucus FEW (None Seen); Urine Protein, UAD 1+ (Negative); Urine Specific Gravity 1.027 (1.001-1.035); Urine Urobilinogen 2 mg/dL (Negative); Urine WBC <1 /hpf (0 - 3); Urine pH 5.5 (5.0-9.0)
[2024-04-07 21:33] LABS: Amphetamine Screen, Urine Neg (NEGATIVE); Benzodiazephine Screen, Urine Neg (NEGATIVE)
[2024-04-07 21:34] LABS: Barbiturate Scree,Urine Neg (NEGATIVE); Cannabinoid Screen, Urine Neg (NEGATIVE); Cocaine Screen, Urine Neg (NEGATIVE); Opiate Scree,Urine Neg (NEGATIVE); Phencyclidine Screen, Urine Neg (NEGATIVE)
[2024-04-08] VITALS (8 sets, daily range): BP systolic 101–144; BP diastolic 35–67; PULSE 71–93; RESP 14–93; TEMP 96.9–99.7; O2SAT 92–96
[2024-04-08 07:52] LABS: Basophils # (auto) 0 10 ^3/uL (0-0.2); Basophils % (auto) 0.3 % (0.0-2.0); Eosinophils # (auto) 0 10 ^3/uL (0-0.8); Eosinophils % (auto) 0.6 % (0.0-7.0); Hematocrit 48.1 % (41.0-53.0); Hemoglobin 16.1 g/dL (13.5-17.5); Lymphocytes # (auto) 0.3 10 ^3/uL (0.4-5.4); Lymphocytes % (auto) 4.9 % (10.0-50.0); Mean Corpuscular Hemoglobin 31.3 pg (28.0-32.0); Mean Corpuscular Hgb Conc. 33.4 g/dL (32.0-36.0); Mean Corpuscular Volume 93.5 fL (80.0-100.0); Monocytes # (auto) 0.2 10 ^3/uL (0-1.3); Monocytes % (auto) 2.8 % (0.0-12.0); Neutrophils # (auto) 5.4 10 ^3/uL (1.6-8.6); Neutrophils % (auto) 91.4 % (37.0-80.0); Nucleated Red Blood Cells % 0.2 %; Platelet Count (auto) 91 10^3/uL (140-450); Red Blood Cells 5.14 10^6/uL (4.5-5.90); Red Cell Distribution Width 14.1 % (11.8-14.3)
[2024-04-08 07:56] LABS: Alanine Aminotransferase 57 U/L (7-40); Albumin 3.9 g/dL (3.2-4.8); Alkaline Phosphatase 104 U/L (46-116); Anion Gap 7 (5-15); Aspartate Aminotransferase 77 U/L (13-40); BUN/Creatinine Ratio 15.5 (10.0-20.0); Blood Urea Nitrogen 18 mg/dL (9-23); Calcium 9.2 mg/dL (8.7-10.4); Carbon Dioxide 28 mmol/L (20-31); Chloride 102 mmol/L (98-107); Glucose 110 mg/dL (74-106); Sodium 137 mmol/L (136-145)
[2024-04-08 07:57] LABS: Total Protein 6.2 g/dL (5.7-8.2)
[2024-04-08] MEDS ORDERED: IBUPROFEN 600 MG TAB PO PRN (10:30)
--- NOTE | 2024-04-08 11:41 | DVH ---
US KIDNEY HISTORY: renal mass, bladder mass COMPARISON: None TECHNIQUE: Transverse and longitudinal grayscale and color Doppler images were obtained of the kidney s and bladder. FINDINGS: Right kidney: Size: 11.7 cm Cortical thickness: Normal Echogenicity: Normal Stones: None Masses: 4.4 x 2.8 x 3.3 cm lobulated cyst in the right upper pole. Hydronephrosis: None Ureters: Not well visualized. Other: None Left kidney: Size: 11.7 cm Cortical thickness: Normal Echogenicity: Normal Stones: None Masses: None Hydronephrosis: None Ureters: Not well visualized. Other: None Bladder: Normal Other: Large prostate. IMPRESSION: 4.4 x 2.8 x 3.3 cm lobulated cyst in the right upper pole. Enlarged prostate.
[2024-04-08] MEDS ORDERED: VANCOMYCIN PER PHARMACY 0 MG IV SCH (14:30)
--- NOTE | 2024-04-08 14:30 | DVH ---
INDICATION: transaminitis TECHNIQUE: Multiple real-time sonographic images were obtained of the right upper quadrant. COMPARISON: None FINDINGS: The liver demonstrates increased echotexture without focal mass lesions. The liver measures 20 cm. There is no intrahepatic or extrahepatic ductal dilatation. The common duct measures is no t well visualized due to obscuration from bowel gas. The gallbladder is without evidence of stone or sludge. There is comet tail artifact at the gallbladd er fundus suggestive of gallbladder adenomyomatosis. The gallbladder wall measures 2 mm and is with in normal limits. The right kidney was imaged on same day renal ultrasound and demonstrated a right renal cyst measurin g 4.4 cm. The pancreas is not well visualized due to overlying bowel gas. IMPRESSION: No sonographic evidence of gallstones or acute cholecystitis. Hepatic steatosis and hepatomegaly.
--- NOTE | 2024-04-08 16:54 | DVHPNRES ---
Progress Note Date Seen: Apr 08, 2024 Resident Creating Document: JHAJJNOEMY RESIDENT Medical Necessity Reason Pt with a Central, PICC or Fol: No Subjective Review of Systems Patient is a 78-year-old with a past medical history of BPH on tamsulosin presented to the ED with a chief complaint of leg weakness and mechanical fall for 1 day prior to admission. Patient reports that his legs have been feeling weak than usual for the last 4-5 months. Patient reported that since Saturday evening on 04/05/2024 he has been feeling more weak than usual. The next day while he was at home his weakness progressed the patient was able to walk slowly but experienced 2-3 falls following which he was brought to the hospital for further evaluation. Patient reported feeling feverish and some nausea. Patient denied chest pain palpitations, abdominal pain, shortness of breath. Patient did not report any recent sick contacts, denied recent travel, no diarrheal illness, no cough, no rashes on the body, no difficulty swallowing, no burning pain on urination or frequency or hesitancy, no chills or rigors. Past medical history: BPH, aortic valve sclerosis Past surgical history: cataract, hernia Family history: None Social history: Patient lives with denies smoking, alcohol, drug use Home meds: Tamsulosin, multivitamins, herbal supplements Review of systems 04/07- Patient seen and examined at the bedside. Patient is alert and oriented to time, place and person. Patient reports no shortness a breath, chest pain, abdominal pain, dysuria, diarrhea or constipation. Patient reports that his legs have been feeling weaker than usual since the past few days. Patient's vitals show BP 151/67 mmHg, heart rate 98 beats per minute, temperature 98.5 F. patient had episode of fever in the afternoon recorded up to 102.6 degree F following which acetaminophen was given which relieved the fever. Sample for blood culture, urine culture, respiratory culture has been sent. 04/08- patient was alert and oriented to time, place and person. Patient reports feeling better than yesterday. Overnight patient had 1 episode of fever recorded up to 102.3 F which was relieved with the acetaminophen. Further therapy re-evaluated the patient reported that patient has improved humidity and improved balance. Patient has dry coughing with minimal whitish expectoration. Patient denies shortness of breath, chest pain, abdominal pain, diarrhea, dysuria. Patient reports mild difficulty in initiating urination, dribbling following which digital rectal examination was done on which firm enlarged nontender mass was felt in the anterior anal canal. Objective vital signs Vital Sign Date Time Temp Pulse Resp B/P (MAP) Pulse Ox O2 Delivery O2 Flow Rate FiO2 04/08/24 16:00 99.6 87 93 138/67 (90) 93 99.6 04/07/24 20:00 Room Air* 0 21 Total Intake and Output 04/07/24 04/07/24 04/08/24 15:00 23:00 07:00 Intake Total 50 ml 1200 ml 1400 ml Output Total 900 ml Balance 50 ml 300 ml 1400 ml medications Current Medications Medications Dose Ordered Sig/Anotnette Route Start Time Stop Time Status Last Admin Dose Admin Ondansetron HCl 4 mg Q4HP PRN IV 04/07/24 01:15 Morphine Sulfate 2 mg Q4HPRN PRN IV 04/07/24 01:15 Nitroglycerin 0.4 mg Q5MINP PRN SL 04/07/24 01:15 Morphine Sulfate 2 mg Q30M PRN IV 04/07/24 01:15 Tamsulosin HCl 0.4 mg QPM PO 04/07/24 18:00 04/07/24 17:34 0.4 MG Ceftriaxone Sodium 50 ml @ 100 mls/hr DAILY@09 IV 04/07/24 09:00 04/08/24 09:51 100 MLS/HR Labetalol HCl 10 mg Q4HP PRN IV 04/07/24 18:15 Sodium Chloride 1,000 ml @ 125 mls/hr Q8H IV 04/07/24 20:00 04/08/24 04:00 125 MLS/HR Ibuprofen 400 mg Q4HPRN PRN PO 04/08/24 10:30 Vancomycin HCl 0 ml @ 0 mls/hr UD IV 04/08/24 14:30 Vancomycin HCl 200 ml @ 200 mls/hr Q1H IV 04/08/24 15:30 04/08/24 17:29 Examination Physical Examination Gen - no pallor, no icterus, no cyanosis, no clubbing, no LAD, no edema . Skin - Patients skin is warm and dry. HEENT - normocephalic, atraumatic, moist mucous membranes. Neck - full ROM, no LAD, no JVD Pulmonary - B/L vesicular breath sounds. no crackles , no wheezing, no stridor. cardiovascular - normal S1,S2 heard. no murmurs heard. peripheral pulses normal radial 2+, pedal 2+. capillary refill normal <2 secs. GI - soft abdomen without tenderness to palpation . no hepatospleenomegaly. Bowel sounds normoactive Neurological - Patient is A/O X 3 . Bilateral upper extremity tone normal, bilateral lower extremity tone slightly increased, Bilateral upper extremity strength 5/5, bilateral lower extremity strength 5/5, deep tendon reflexes 2+, no facial droop, normal speech, resting tremor noted in right hand on examination, no sensory deficiets, short stepped wide-based gait. Cranial nerves 3 4 and 6 normal, pupils isocoric and reactive, normal facial sensation, normal cranial nerve 7 exam, no auditory deficit, cranial nerve 9, 10, 11, 12 normal exam Digital rectal exam- from enlarged nontender mass felt in the anterior anal canal laboratory and microbiology Laboratory Tests 04/08/24 06:50 Test 04/08/24 06:50 Range/Units Serum Glucose 110 H 74-106 mg/dL Microbiology Date/Time Source Procedure Growth Status 04/07/24 21:00 Voided Urine Urine Culture - Preliminary Resulted 04/07/24 21:00 Sputum Gram Stain - Final Resulted 04/07/24 21:00 Sputum Respiratory Culture - Preliminary Resulted 04/07/24 03:40 Blood Blood Culture - Preliminary NO GROWTH AFTER 24 HOURS OF INCUBATION. Resulted Problem List/Assessment/Plan Problem List/Assessment/Plan Assessment and plan # SIRS - on admission patient had temperature more than 100.1 F and heart rate more than 90 - preliminary urine culture showed no growth - preliminary blood culture of 24 hours of incubation showed no growth - respiratory Gram stain and culture shows Gram-positive cocci in pairs and Gram-positive cocci in chains, Gram-positive rods - no rash on the body - no history of recent travel, no sick contacts, no diarrheal illness, no dysuria - lactic acid within normal limits - HIV 1 and 2 antibody negative - COVID-19 negative, influenza type a and B negative - hepatitis B surface antibody and hepatitis C antibody # community-acquired pneumonia likely due to Gram +/-bacteria - preliminary report of sputum sample for Gram stain and culture showed many Gram-positive cocci in pairs, many Gram-positive cocci in chains, many Gram- positive rods - patient is started on vancomycin and ceftriaxone # bilateral lower extremity weakness ? - on neuro exam bilateral lower extremity strength 5/5, knee and ankle reflex 2+, plantar reflex downgoing - normal cerebellar exam - short stepped wide based gait with poor balance - vitamin B12 normal - physical therapy evaluation-patient walked 50 ft with front wheel walker - tele neuro consult ? 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 Full code Plan discussed with Dr. Larry Plan discussed with: Patient, Spouse My Orders My Orders Orders - NOEMY LORD Procedure Category Date Status Time Labetalol Hcl PHA 04/07/24 In Process (Labetalol Hcl) 18:15 Sodium Chloride 0.9% PHA 04/07/24 In Process 20:00 Discontinue Tele CLARISSA 04/07/24 In Process 20:20 Transfer Orders XFER 04/07/24 Transmitted 20:[address] 04/09/24 Logged Needle Placeme 07:00 Ls Spine Wo Contrast CT 04/09/24 Logged 07:00 Mrsa Screen ALDA 04/08/24 Uncollected 14:27 Vancomycin Per PHA 04/08/24 In Process Pharmacy 14:30 Psa Total+% Free LAB 04/08/24 In Process 14:27 Vancomycin 1gm/200ml PHA 04/08/24 In Process Premix 15:30 Date of Service: Apr 08, 2024 Billing Provider: HATTIE STEWART MD Common Visit Codes: [id number] INP/OBS CARE(HIGH) NOEMY LORD RESIDENT Apr 08, 2024 16:54 HATTIE STEWART MD Apr 08, 2024 22:44
[2024-04-08] MEDS: VANCOMYCIN 1GM/200ML PREMIX 200 ML IV SCH (17:31)
[2024-04-08] MEDS: LIDOCAINE 2%HCL (LOCAL ANESTH.) INJ 10ml MDV ONE (17:38)
[2024-04-09] VITALS (8 sets, daily range): BP systolic 115–133; BP diastolic 50–68; PULSE 77–106; RESP 18–20; TEMP 98.1–99.1; O2SAT 93–96
[2024-04-09] MEDS: VANCOMYCIN 1GM/200ML PREMIX 200 ML IV SCH (06:10)
[2024-04-09 06:48] LABS: Alanine Aminotransferase 60 U/L (7-40); Albumin 3.4 g/dL (3.2-4.8); Alkaline Phosphatase 113 U/L (46-116); Anion Gap 10 (5-15); Aspartate Aminotransferase 75 U/L (13-40); Bilirubin, Total 0.7 mg/dL (0.2-1.0); Blood Urea Nitrogen 16 mg/dL (9-23); Calcium 8.4 mg/dL (8.7-10.4); Carbon Dioxide 21 mmol/L (20-31); Chloride 103 mmol/L (98-107); Glucose 94 mg/dL (74-106); Potassium 3.7 mmol/L (3.5-5.1); Sodium 134 mmol/L (136-145); Total Protein 5.1 g/dL (5.7-8.2)
[2024-04-09 06:57] LABS: Basophils # (auto) 0 10 ^3/uL (0-0.2); Basophils % (auto) 0.7 % (0.0-2.0); Eosinophils # (auto) 0 10 ^3/uL (0-0.8); Hemoglobin 14.4 g/dL (13.5-17.5); Lymphocytes # (auto) 0.8 10 ^3/uL (0.4-5.4); Lymphocytes % (auto) 16.2 % (10.0-50.0); Mean Corpuscular Hemoglobin 31.5 pg (28.0-32.0); Mean Corpuscular Hgb Conc. 34.4 g/dL (32.0-36.0); Mean Corpuscular Volume 91.7 fL (80.0-100.0); Monocytes # (auto) 0.3 10 ^3/uL (0-1.3); Monocytes % (auto) 6.4 % (0.0-12.0); Neutrophils # (auto) 3.6 10 ^3/uL (1.6-8.6); Neutrophils % (auto) 75.7 % (37.0-80.0); Nucleated Red Blood Cells % 0.4 %; Platelet Count (auto) 69 10^3/uL (140-450); Red Blood Cells 4.58 10^6/uL (4.5-5.90); Red Cell Distribution Width 14.3 % (11.8-14.3); White Blood Cell 4.7 10^3/uL (4.4-10.8)
[2024-04-09 07:57] LABS: Platelet Estimate Decreased
[2024-04-09 07:58] LABS: Large Platelets FEW
[2024-04-09 07:59] LABS: RBC Morphology Normal
[2024-04-09 08:59] LABS: Hepatitis B Core Total AB Negative (Negative)
[2024-04-09 09:06] LABS: Hepatitis B Surface Antigen Negative (Negative)
[2024-04-09 09:27] LABS: Hepatitis C Antibody Negative (Negative)
[2024-04-09 12:17] LABS: Hepatitis A Ab IgM Negative; Hepatitis A Total Antibody Negative (Negative)
[2024-04-09 12:18] LABS: Hepatitis B Core IgM Negative; Hepatitis B Surface Antibody Negative (Negative); Hepatitis B Surface Antigen Negative (Negative); Hepatitis C Antibody Negative (Negative)
[2024-04-09 12:56] LABS: INR 1.1 (0.9-1.15); Partial Thromboplastin Time 28.8 SEC (24.5-34.5); Prothrombin Time 11.6 sec (9.3-11.8)
--- NOTE | 2024-04-09 21:22 | DVHPNRES ---
Progress Note Date Seen: Apr 09, 2024 Resident Creating Document: JHAJJNOEMY RESIDENT Medical Necessity Reason Pt with a Central, PICC or Fol: No Subjective Review of Systems Patient is a 78-year-old with a past medical history of BPH on tamsulosin presented to the ED with a chief complaint of leg weakness and mechanical fall for 1 day prior to admission. Patient reports that his legs have been feeling weak than usual for the last 4-5 months. Patient reported that since Saturday evening on 04/05/2024 he has been feeling more weak than usual. The next day while he was at home his weakness progressed the patient was able to walk slowly but experienced 2-3 falls following which he was brought to the hospital for further evaluation. Patient reported feeling feverish and some nausea. Patient denied chest pain palpitations, abdominal pain, shortness of breath. Patient did not report any recent sick contacts, denied recent travel, no diarrheal illness, no cough, no rashes on the body, no difficulty swallowing, no burning pain on urination or frequency or hesitancy, no chills or rigors. Past medical history: BPH, aortic valve sclerosis Past surgical history: cataract, hernia Family history: None Social history: Patient lives with denies smoking, alcohol, drug use Home meds: Tamsulosin, multivitamins, herbal supplements Review of systems 04/07- Patient seen and examined at the bedside. Patient is alert and oriented to time, place and person. Patient reports no shortness a breath, chest pain, abdominal pain, dysuria, diarrhea or constipation. Patient reports that his legs have been feeling weaker than usual since the past few days. Patient's vitals show BP 151/67 mmHg, heart rate 98 beats per minute, temperature 98.5 F. patient had episode of fever in the afternoon recorded up to 102.6 degree F following which acetaminophen was given which relieved the fever. Sample for blood culture, urine culture, respiratory culture has been sent. 04/08- patient was alert and oriented to time, place and person. Patient reports feeling better than yesterday. Overnight patient had 1 episode of fever recorded up to 102.3 F which was relieved with the acetaminophen. Further therapy re-evaluated the patient reported that patient has improved humidity and improved balance. Patient has dry coughing with minimal whitish expectoration. Patient denies shortness of breath, chest pain, abdominal pain, diarrhea, dysuria. Patient reports mild difficulty in initiating urination, dribbling following which digital rectal examination was done on which firm enlarged nontender mass was felt in the anterior anal canal. 04/09- patient is alert and oriented to time, place and person. Patient significantly better than yesterday and is sitting in the chair reading book. Patient had mild episode of fever recorded 99.3 F. patient [place] [address]/mm3. Patient reports improved balance but still feels legs are weak. Patient has dry cough. Denies shortness of breath, chest pain. Objective vital signs Vital Sign Date Time Temp Pulse Resp B/P (MAP) Pulse Ox O2 Delivery O2 Flow Rate FiO2 04/09/24 16:43 98.6 77 18 131/62 (85) 95 98.6 04/09/24 07:40 Room Air* 0 21 Total Intake and Output 04/08/24 04/08/24 04/09/24 15:00 23:00 07:00 Intake Total 1500 ml 300 ml Output Total 1400 ml Balance 100 ml 300 ml medications Current Medications Medications Dose Ordered Sig/Antonette Route Start Time Stop Time Status Last Admin Dose Admin Ondansetron HCl 4 mg Q4HP PRN IV 04/07/24 01:15 Morphine Sulfate 2 mg Q4HPRN PRN IV 04/07/24 01:15 Nitroglycerin 0.4 mg Q5MINP PRN SL 04/07/24 01:15 Morphine Sulfate 2 mg Q30M PRN IV 04/07/24 01:15 Tamsulosin HCl 0.4 mg QPM PO 04/07/24 18:00 04/09/24 19:41 0.4 MG Ceftriaxone Sodium 50 ml @ 100 mls/hr DAILY@09 IV 04/07/24 09:00 04/09/24 08:49 100 MLS/HR Labetalol HCl 10 mg Q4HP PRN IV 04/07/24 18:15 Sodium Chloride 1,000 ml @ 125 mls/hr Q8H IV 04/07/24 20:00 04/09/24 20:22 125 MLS/HR Ibuprofen 400 mg Q4HPRN PRN PO 04/08/24 10:30 Examination Physical Examination Gen - no pallor, no icterus, no cyanosis, no clubbing, no LAD, no edema . Skin - Patients skin is warm and dry. HEENT - normocephalic, atraumatic, moist mucous membranes. Neck - full ROM, no LAD, no JVD Pulmonary - B/L vesicular breath sounds. no crackles , no wheezing, no stridor. cardiovascular - normal S1,S2 heard. no murmurs heard. peripheral pulses normal radial 2+, pedal 2+. capillary refill normal <2 secs. GI - soft abdomen without tenderness to palpation . no hepatospleenomegaly. Bowel sounds normoactive Neurological - Patient is A/O X 3 . Bilateral upper extremity tone normal, bilateral lower extremity tone slightly increased, Bilateral upper extremity strength 5/5, bilateral lower extremity strength 5/5, deep tendon reflexes 2+, no facial droop, normal speech, resting tremor noted in right hand on examination, no sensory deficiets, short stepped wide-based gait. Cranial nerves 3 4 and 6 normal, pupils isocoric and reactive, normal facial sensation, normal cranial nerve 7 exam, no auditory deficit, cranial nerve 9, 10, 11, 12 normal exam Digital rectal exam- from enlarged nontender mass felt in the anterior anal canal laboratory and microbiology Laboratory Tests 04/09/24 05:30 Test 04/09/24 05:30 Range/Units Serum Glucose 94 74-106 mg/dL Microbiology Date/Time Source Procedure Growth Status 04/08/24 18:57 Nose MRSA Screen - Final Complete 04/07/24 21:00 Voided Urine Urine Culture - Preliminary Resulted 04/07/24 21:00 Sputum Gram Stain - Final Resulted 04/07/24 21:00 Sputum Respiratory Culture - Preliminary Resulted 04/07/24 03:40 Blood Blood Culture - Preliminary NO GROWTH AFTER 48 HOURS OF INCUBATION. Resulted Problem List/Assessment/Plan Problem List/Assessment/Plan Assessment and plan # SIRS - on admission patient had temperature more than 100.1 F and heart rate more than 90 - preliminary urine culture showed no growth - blood culture at 48 hours of incubation showed no growth - respiratory Gram stain and culture shows Gram-positive cocci in pairs and Gram-positive cocci in chains, Gram-positive rods - no rash on the body - no history of recent travel, no sick contacts, no diarrheal illness, no dysuria - lactic acid within normal limits - HIV 1 and 2 antibody negative - COVID-19 negative, influenza type a and B negative - hepatitis panel negative # community-acquired pneumonia likely due to Gram +/-bacteria - preliminary report of sputum sample for Gram stain and culture showed many Gram-positive cocci in pairs, many Gram-positive cocci in chains, many Gram- positive rods - patient is started on vancomycin and ceftriaxone - vancomycin stopped on 03/08 - patient was on ceftriaxone 1 g IV daily # thrombocytopenia - patient's platelets count trends 112--> 114--> 91--> 69 - peripheral blood smear pending - patient has a associated fever and lower extremity weakness ?TTP - Heme-Onc consulted # bilateral lower extremity weakness - on neuro exam bilateral lower extremity strength 5/5, knee and ankle reflex 2+, plantar reflex downgoing - normal cerebellar exam - short stepped wide based gait with poor balance - resting tremor noted in the right hand - vitamin B12 normal - physical therapy evaluation-patient walked 50 ft with front wheel walker - tele neuro consult # Ruled out stroke - head CT showed no acute intracranial abnormality - brain MRI unremarkable # History of BPH - Patient continued on tamsulosin - PSA pending - on digital rectal examination prostatism nontender firm likely ruling out prostatitis # transaminitis # hepatic steatosis and hepatomegaly on liver ultrasound - hepatitis panel negative Goals of care discussed with the patient and the family for over 25 minutes. Full code Plan discussed with Dr. Larry Plan discussed with: Patient My Orders My Orders Orders - NOEMY LORD Procedure Category Date Status Time * Hematology/Oncology CONS 04/09/24 Transmitted Consult 10:48 Sequential CLARISSA 04/09/24 In Process Compression Device 10:48 Date of Service: Apr 09, 2024 Billing Provider: HATTIE STEWART MD Common Visit Codes: [id number] INP/OBS CARE(HIGH) NOEMY LORD RESIDENT Apr 09, 2024 21:22 HATTIE STEWART MD Apr 10, 2024 09:12
[2024-04-10] VITALS (8 sets, daily range): BP systolic 118–148; BP diastolic 54–61; PULSE 78–103; RESP 14–20; TEMP 97.6–99.8; O2SAT 94–95
[2024-04-10 06:33] LABS: Basophils # (auto) 0 10 ^3/uL (0-0.2); Eosinophils # (auto) 0.1 10 ^3/uL (0-0.8); Eosinophils % (auto) 1.1 % (0.0-7.0); Hemoglobin 14.7 g/dL (13.5-17.5); Monocytes # (auto) 0.6 10 ^3/uL (0-1.3); Monocytes % (auto) 9.7 % (0.0-12.0); Neutrophils # (auto) 4.5 10 ^3/uL (1.6-8.6); White Blood Cell 6.4 10^3/uL (4.4-10.8)
[2024-04-10 06:36] LABS: Basophils % (auto) 0.3 % (0.0-2.0); Hematocrit 42.9 % (41.0-53.0); Lymphocytes # (auto) 1.2 10 ^3/uL (0.4-5.4); Lymphocytes % (auto) 18.2 % (10.0-50.0); Mean Corpuscular Hemoglobin 31.2 pg (28.0-32.0); Mean Corpuscular Hgb Conc. 34.2 g/dL (32.0-36.0); Mean Corpuscular Volume 91.4 fL (80.0-100.0); Neutrophils % (auto) 70.7 % (37.0-80.0); Platelet Count (auto) 67 10^3/uL (140-450); Red Blood Cells 4.69 10^6/uL (4.5-5.90)
[2024-04-10 06:40] LABS: Alanine Aminotransferase 59 U/L (7-40); Albumin 3.6 g/dL (3.2-4.8); Alkaline Phosphatase 143 U/L (46-116); Anion Gap 9 (5-15); Aspartate Aminotransferase 71 U/L (13-40); BUN/Creatinine Ratio 11.9 (10.0-20.0); Blood Urea Nitrogen 12 mg/dL (9-23); Calcium 8.5 mg/dL (8.7-10.4); Carbon Dioxide 24 mmol/L (20-31); Chloride 106 mmol/L (98-107); Glucose 96 mg/dL (74-106); Potassium 3.3 mmol/L (3.5-5.1); Sodium 139 mmol/L (136-145)
[2024-04-10 06:41] LABS: Bilirubin, Total 0.7 mg/dL (0.2-1.0); Total Protein 5.7 g/dL (5.7-8.2)
[2024-04-10] MEDS: POTASSIUM CHL 20 Meq TABLET PO ONE ×2 (07:06→11:55)
[2024-04-10 08:06] LABS: PSA Free 2.67 ng/mL; Prostate Specific Antigen 17.6 ng/mL (0.0-4.0)
[2024-04-10 12:07] LABS: CRP High Sensitivity 11.08 mg/dL (<1.0)
[2024-04-10 12:10] LABS: Erythrocyte Sedimentation Rate 4 mm/hr (0-20)
--- NOTE | 2024-04-10 14:10 | DVHINCON2 ---
Date of service: Apr 10, [address] Duckworth Jhajj History of Present Illness 78 years old gentleman who has been in good health. Has a history of BPH and some cardiac valve issues. He was brought to the hospital with generalized weakness and falling episodes. He has experienced weakness in the lower extremities with pains in the knees. The weakness in the legs became worse. Patient has had high fevers and became somewhat confused. With the fever goes down he feels better but with a high fever he has mental changes. No chest pains palpitations or abdominal pains. I am consulted for dropping platelet count. Platelets on 03/1920 [id number] [place] [id number] knee yesterday [id number] and today [id number]. White count is 6.4 hemoglobin 14.7 calcium 8.5 GGT 153 AST 71 ALT 59 alkaline phosphatase 143 LDH 429 CRP 11.08 total protein 5.7 albumin 3.6 BUN 12 creatinine 1.01 EGFR 77 PT INR 1.10 PTT 28.8 hepatitis a antibody is negative B surface antigen B surface antibody B core antibody and hepatitis-C antibodies were negative. HIV one and two is negative Urine culture showed mixed barrie Blood cultures in 72 hours were negative Sputum culture showed moderate growth of normal oropharyngeal barrie Chest x-ray was unremarkable Brain MRI was unremarkable Abdominal ultrasound was unremarkable Renal ultrasound showed 4.4 cm lobulated cyst in the right upper pole of the kidney The patient is being treated with the antibiotics and is feeling a lot better the leg strength is improving mentally he is normal and overall he is has improved. Does complain of some dry coughing. No nausea vomiting Past Medical History Some cardiac valve issues Hernia repair BPH Family History: Cardiovascular disease G8 FATHER, Onset:60 years & older G8 BROTHER, Onset:60 years & older G8 BROTHER, Onset:60 years & older Family History Mother had breast cancer Social History No smoking drinking or drugs Allergies: Coded Allergies: Levofloxacin (Verified Allergy, Unknown, 09/18/18) Quinolones (Verified Allergy, Unknown, 09/18/18) Home Meds Unable to Obtain Active Prescriptions or Reported Meds Vital Signs Vital Signs Date Time Temp Pulse Resp B/P (MAP) Pulse Ox O2 Delivery O2 Flow Rate FiO2 04/10/24 13:00 98.0 79 20 118/61 (80) 94 98.0 04/10/24 08:00 Room Air* 0 21 Physical Exam Moderately built and nourished, in no acute distress, alert and oriented. No jaundice Head and neck: Unremarkable for any masses or neck nodes. No conjunctival or mucosal hemorrhage Lungs: Clear Cardiovascular: S1-S2 heard well Abdomen: No organomegaly, tenderness or ascites. Bowel sounds are present. Extremities: No clubbing edema cyanosis or calf tenderness. Skin: Unremarkable for petechia purpura ecchymosis Lymphadenopathy: None Neurological exam: No focal deficit Labs/Diagnostic Data Labs Test 04/10/24 11:40 04/10/24 05:53 04/09/24 12:04 04/09/24 05:30 Range/Units D-Dimer, Quantitative 19.03 H 0.0-0.49 mg/L FEU White Blood Count 6.4 # 4.4-10.8 10^3/uL Red Blood Count 4.69 4.5-5.90 10^6/uL Hemoglobin 14.7 13.5-17.5 g/dL Hematocrit 42.9 41.0-53.0 % Mean Corpuscular Volume 91.4 80.0-100.0 fL Mean Corpuscular Hemoglobin 31.2 28.0-32.0 pg Mean Corpuscular Hemoglobin Concent 34.2 32.0-36.0 g/dL Red Cell Distribution Width 14.0 11.8-14.3 % Platelet Count 67 L 140-450 10^3/uL Mean Platelet Volume 9.8 6.9-10.8 fL Neutrophils (%) (Auto) 70.7 37.0-80.0 % Lymphocytes (%) (Auto) 18.2 10.0-50.0 % Monocytes (%) (Auto) 9.7 0.0-12.0 % Eosinophils (%) (Auto) 1.1 0.0-7.0 % Basophils (%) (Auto) 0.3 0.0-2.0 % Neutrophils # (Auto) 4.5 1.6-8.6 10 ^3/uL Lymphocytes # (Auto) 1.2 0.4-5.4 10 ^3/uL Monocytes # (Auto) 0.6 0-1.3 10 ^3/uL Eosinophils # (Auto) 0.1 0-0.8 10 ^3/uL Basophils # (Auto) 0 0-0.2 10 ^3/uL Nucleated Red Blood Cells 0.0 % Erythrocyte Sedimentation Rate 4 0-20 mm/hr Sodium Level 139 # 136-145 mmol/L Potassium Level 3.3 L 3.5-5.1 mmol/L Chloride Level 106 98-107 mmol/L Carbon Dioxide Level 24 20-31 mmol/L Anion Gap 9 5-15 Blood Urea Nitrogen 12 9-23 mg/dL Creatinine 1.01 0.700-1.30 mg/dL Glomerular Filtration Rate Calc 77 >90 mL/min BUN/Creatinine Ratio 11.9 10.0-20.0 Serum Glucose 96 74-106 mg/dL Calcium Level 8.5 L 8.7-10.4 mg/dL Total Bilirubin 0.7 0.2-1.0 mg/dL Gamma Glutamyl Transpeptidase 153 H <73 U/L Aspartate Amino Transferase (AST) 71 H 13-40 U/L Alanine Aminotransferase (ALT) 59 H 7-40 U/L Alkaline Phosphatase 143 H 46-116 U/L C-Reactive Protein High Sensitivity 11.08 H <1.0 mg/dL Total Protein 5.7 5.7-8.2 g/dL Albumin 3.6 3.2-4.8 g/dL Lipase 54 H 12-53 U/L Prothrombin Time 11.6 9.3-11.8 sec Prothrombin Time INR 1.10 0.9-1.15 Activated Partial Thromboplast Time 28.8 24.5-34.5 SEC Platelet Estimate Decreased Large Platelets Few Red Blood Cell Morphology Normal Lactate Dehydrogenase 429 H 120-246 U/L Hepatitis A IgM Antibody Negative Hepatitis A Antibody Total Negative Negative Hepatitis B Surface Antigen Negative Negative Hepatitis B Surface Antibody Negative Negative Hepatitis B Core Total Antibody Negative Negative Hepatitis B Core IgM Antibody Negative Hepatitis C Antibody Negative Negative Test 04/08/24 15:17 04/07/24 21:00 04/07/24 18:44 04/07/24 11:44 Range/Units Free Prostate Specific Antigen 2.67 N/A ng/mL Percent Free Prostate Specific Ag 15.2 . % Prostate Specific Antigen Total 17.6 H 0.0-4.0 ng/mL Urine Color Yellow Yellow Urine Clarity Turbid H Clear Urine pH 5.5 5.0-9.0 Urine Specific Morning Sun 1.027 1.001-1.035 Urine Protein 1+ H Negative Urine Ketones Negative Negative Urine Blood Negative Negative /uL Urine Nitrite Negative Negative Urine Bilirubin Negative Negative Urine Urobilinogen 2 H Negative mg/dL Urine Leukocyte Esterase Negative Negative /uL Urine RBC <1 0 - 3 /hpf Urine WBC <1 0 - 3 /hpf Urine Squamous Epithelial Cells Few <5 /hpf Urine Bacteria None seen None Seen /hpf Urine Mucus Few None Seen Urine Yeast (Budding) Occasional None Seen /hpf Urine Glucose Normal Normal mg/dL Urine Opiates Screen Neg NEGATIVE Urine Fentanyl Screen Neg NEGATIVE Urine Barbiturates Screen Neg NEGATIVE Urine Phencyclidine Screen Neg NEGATIVE Urine Amphetamines Screen Neg NEGATIVE Urine Benzodiazepines Screen Neg NEGATIVE Urine Cocaine Screen Neg NEGATIVE Urine Cannabinoids Screen Neg NEGATIVE Lactic Acid Level 1.1 0.4-2.0 mmol/L Plasma/Serum Blood Alcohol < 3.0 <10 mg/dL HIV (1&2) Antibody Negative Negative Test 04/07/24 04:06 04/07/24 03:40 04/06/24 22:38 04/06/24 21:33 Range/Units Influenza Type A Antigen Negative Negative Influenza Type B Antigen Negative Negative SARS-CoV-2 Antigen (Rapid) Negative NEGATIVE Vitamin B12 Level 535 211-911 pg/mL Vitamin D 25-Hydroxy 31.9 30.0-100 ng/mL Thyroid Stimulating Hormone (TSH) 0.33 L 0.55-4.78 uIU/mL Free Thyroxine (T4) Calculated 1.26 0.89-1.76 ng/dL Free Triiodothyronine (T3) pg/mL 2.35 2.3-4.2 pg/mL Troponin I High Sensitivity 38 </=54 ng/L B-Type Natriuretic Peptide 123.23 0-100 pg/mL Test 04/06/24 21:03 Range/Units POC Glucose 126 H 70-106 mg/dl Microbiology Date/Time Source Procedure Growth Status 04/08/24 18:57 Nose MRSA Screen - Final Complete 04/07/24 21:00 Voided Urine Urine Culture - Final Complete 04/07/24 21:00 Sputum Gram Stain - Final Resulted 04/07/24 21:00 Sputum Respiratory Culture - Preliminary Resulted 04/07/24 03:40 Blood Blood Culture - Preliminary NO GROWTH AFTER 72 HOURS OF INCUBATION. Resulted Assessment 1. Thrombocytopenia with complaints cells high fevers the source of infection is not clear whether patient has improved with the antibiotics with improvement in the legs strength fevers and overall well-being Blood smear shows normocytic normochromic red cells, no schistocytes. Platelets are diminished and there are some large platelets. There is some increased number of monocytes Patient has high LDH total bili 0.7 otitis, HIV influenza and COVID is negative Chest x-ray is unremarkable Ultrasound is unremarkable No Indications of TTP Thrombocytopenia could be secondary to possible infection 2. fevers generalized weakness and leg weakness the which are improving. Fevers admission were up to 102.6 and on the last few days is up to 98 Plan/Recommendation Continue the supportive care with the antibiotics follow onto the CBC I do not see any clinical indication of TTP what may check indirect bilirubin, reticulocyte count, direct Rona, haptoglobin The patient could follow up with me as an outpatient Plan discussed with: Patient, Spouse ANUSHA FRANCO MD Apr 10, 2024 14:10
[2024-04-10] MEDS: IOHEXOL 350 MG/ML 100ML IJ ONE (17:13)
--- NOTE | 2024-04-10 17:40 | DVHPNRES ---
Progress Note Date Seen: Apr 10, 2024 Resident Creating Document: JHAJJNOEMY RESIDENT Medical Necessity Reason Pt with a Central, PICC or Fol: No Subjective Review of Systems Patient is a 78-year-old with a past medical history of BPH on tamsulosin presented to the ED with a chief complaint of leg weakness and mechanical fall for 1 day prior to admission. Patient reports that his legs have been feeling weak than usual for the last 4-5 months. Patient reported that since Saturday evening on 04/05/2024 he has been feeling more weak than usual. The next day while he was at home his weakness progressed the patient was able to walk slowly but experienced 2-3 falls following which he was brought to the hospital for further evaluation. Patient reported feeling feverish and some nausea. Patient denied chest pain palpitations, abdominal pain, shortness of breath. Patient did not report any recent sick contacts, denied recent travel, no diarrheal illness, no cough, no rashes on the body, no difficulty swallowing, no burning pain on urination or frequency or hesitancy, no chills or rigors. Past medical history: BPH, aortic valve sclerosis Past surgical history: cataract, hernia Family history: None Social history: Patient lives with denies smoking, alcohol, drug use Home meds: Tamsulosin, multivitamins, herbal supplements Review of systems 04/07- Patient seen and examined at the bedside. Patient is alert and oriented to time, place and person. Patient reports no shortness a breath, chest pain, abdominal pain, dysuria, diarrhea or constipation. Patient reports that his legs have been feeling weaker than usual since the past few days. Patient's vitals show BP 151/67 mmHg, heart rate 98 beats per minute, temperature 98.5 F. patient had episode of fever in the afternoon recorded up to 102.6 degree F following which acetaminophen was given which relieved the fever. Sample for blood culture, urine culture, respiratory culture has been sent. 04/08- patient was alert and oriented to time, place and person. Patient reports feeling better than yesterday. Overnight patient had 1 episode of fever recorded up to 102.3 F which was relieved with the acetaminophen. Further therapy re-evaluated the patient reported that patient has improved humidity and improved balance. Patient has dry coughing with minimal whitish expectoration. Patient denies shortness of breath, chest pain, abdominal pain, diarrhea, dysuria. Patient reports mild difficulty in initiating urination, dribbling following which digital rectal examination was done on which firm enlarged nontender mass was felt in the anterior anal canal. 04/09- patient is alert and oriented to time, place and person. Patient significantly better than yesterday and is sitting in the chair reading book. Patient had mild episode of fever recorded 99.3 F. patient is [place] [address]/mm3. Patient reports improved balance but still feels legs are weak. Patient has dry cough. Denies shortness of breath, chest pain. 04/10- patient is alert and oriented to time, place and person. Patient feels leg weakness but similar to the day before. Patient had episodes of fever recorded up to 99.8 [place] [address]/mm3. No active complaints overnight Objective vital signs Vital Sign Date Time Temp Pulse Resp B/P (MAP) Pulse Ox O2 Delivery O2 Flow Rate FiO2 04/10/24 16:43 98.8 89 18 148/60 (89) 95 98.8 04/10/24 08:00 Room Air* 0 21 Total Intake and Output 04/09/24 04/09/24 04/10/24 15:00 23:00 07:00 Intake Total 250 ml 900 ml 600 ml Output Total 400 ml Balance 250 ml 500 ml 600 ml medications Current Medications Medications Dose Ordered Sig/Antonette Route Start Time Stop Time Status Last Admin Dose Admin Ondansetron HCl 4 mg Q4HP PRN IV 04/07/24 01:15 Morphine Sulfate 2 mg Q4HPRN PRN IV 04/07/24 01:15 Nitroglycerin 0.4 mg Q5MINP PRN SL 04/07/24 01:15 Morphine Sulfate 2 mg Q30M PRN IV 04/07/24 01:15 Tamsulosin HCl 0.4 mg QPM PO 04/07/24 18:00 04/09/24 19:41 0.4 MG Ceftriaxone Sodium 50 ml @ 100 mls/hr DAILY@09 IV 04/07/24 09:00 04/10/24 09:28 100 MLS/HR Labetalol HCl 10 mg Q4HP PRN IV 04/07/24 18:15 Ibuprofen 400 mg Q4HPRN PRN PO 04/08/24 10:30 Examination Physical Examination Gen - no pallor, no icterus, no cyanosis, no clubbing, no LAD, no edema . Skin - Patients skin is warm and dry. HEENT - normocephalic, atraumatic, moist mucous membranes. Neck - full ROM, no LAD, no JVD Pulmonary - B/L vesicular breath sounds. no crackles , no wheezing, no stridor. cardiovascular - normal S1,S2 heard. no murmurs heard. peripheral pulses normal radial 2+, pedal 2+. capillary refill normal <2 secs. GI - soft abdomen without tenderness to palpation . no hepatospleenomegaly. Bowel sounds normoactive Neurological - Patient is A/O X 3 . Bilateral upper extremity tone normal, bilateral lower extremity tone slightly increased, Bilateral upper extremity strength 5/5, bilateral lower extremity strength 5/5, deep tendon reflexes 2+, no facial droop, normal speech, resting tremor noted in right hand on examination, no sensory deficiets, short stepped wide-based gait. Cranial nerves 3 4 and 6 normal, pupils isocoric and reactive, normal facial sensation, normal cranial nerve 7 exam, no auditory deficit, cranial nerve 9, 10, 11, 12 normal exam Digital rectal exam- from enlarged nontender mass felt in the anterior anal canal laboratory and microbiology Laboratory Tests 04/10/24 05:53 Test 04/10/24 05:53 Range/Units Serum Glucose 96 74-106 mg/dL Microbiology Date/Time Source Procedure Growth Status 04/08/24 18:57 Nose MRSA Screen - Final Complete 04/07/24 21:00 Voided Urine Urine Culture - Final Complete 04/07/24 21:00 Sputum Gram Stain - Final Complete 04/07/24 21:00 Sputum Respiratory Culture - Final Complete 04/07/24 03:40 Blood Blood Culture - Preliminary NO GROWTH AFTER 72 HOURS OF INCUBATION. Resulted Problem List/Assessment/Plan Problem List/Assessment/Plan Assessment and plan # SIRS # Fever of unknown origin - on admission patient had temperature more than 100.1 F and heart rate more than 90 - preliminary urine culture showed no growth - blood culture at 48 hours of incubation showed no growth - respiratory Gram stain and culture shows Gram-positive cocci in pairs and Gram-positive cocci in chains, Gram-positive rods - no rash on the body - no history of recent travel, no sick contacts, no diarrheal illness, no dysuria - lactic acid within normal limits - HIV 1 and 2 antibody negative - COVID-19 negative, influenza type a and B negative - hepatitis panel negative - infectious disease with Dr. Webster consulted # suspected community-acquired pneumonia likely due to Gram +/-bacteria - preliminary report of sputum sample for Gram stain and culture showed many Gram-positive cocci in pairs, many Gram-positive cocci in chains, many Gram- positive rods - patient is started on vancomycin and ceftriaxone - vancomycin stopped on 03/08 - patient was on ceftriaxone 1 g IV daily # thrombocytopenia - patient's platelets count trends 112--> 114--> 91--> 69 - peripheral blood smear pending - patient has a associated fever and lower extremity weakness ?TTP - elevated LDH 429, and CRP 11.08 - blood smear shows normocytic normochromic red cells, no schistocytes diminished platelets and some large platelets, some increased number of monocytes. - Heme-Onc consult appreciated with Dr. Morocho who recommended indirect bilirubin, haptoglobin, direct Rona, reticulocyte count and assess the clinical indication of TTP, continuing supportive care with antibiotics and follow up as an outpatient in the clinic. # bilateral lower extremity weakness - on neuro exam bilateral lower extremity strength 5/5, knee and ankle reflex 2+, plantar reflex downgoing - normal cerebellar exam - short stepped wide based gait with poor balance - resting tremor noted in the right hand - vitamin B12 normal - physical therapy evaluation-patient walked 50 ft with front wheel walker # elevated ALP and GGT # ruled out PE, CT angio negative # Ruled out stroke - head CT showed no acute intracranial abnormality - brain MRI unremarkable # History of BPH - Patient continued on tamsulosin - PSA pending - on digital rectal examination prostatism nontender firm likely ruling out prostatitis # transaminitis # hepatic steatosis and hepatomegaly on liver ultrasound - hepatitis panel negative Goals of care discussed with the patient and the family for over 25 minutes. Full code Plan discussed with Dr. Larry Plan discussed with: Patient, Spouse, Son My Orders My Orders Orders - NOEMY LORD RESIDENT Procedure Category Date Status Time * Infectious [place]- Dr. CRONIN 04/10/24 Transmitted Gerald Webster 11:04 Haptoglobin LAB 04/10/24 In Process 13:38 [place]; Direct LAB 04/10/24 Logged 16:05 Date of Service: Apr 10, 2024 Billing Provider: HATTIE STEWART MD Common Visit Codes: [id number] INP/OBS CARE(HIGH) NOEMY LORD RESIDENT Apr 10, 2024 17:40 HATTIE STEWART MD Apr 12, 2024 09:19
--- NOTE | 2024-04-10 18:16 | DVH ---
EXAM: CT CT ANGIO CHEST CONTRAST History: elevated ddimer Comparison Study: None available TECHNIQUE: A digital precision crop manager image was obtained. During the uneventful, intravenous administration of c ontrast material, multislice data acquisition was obtained through the chest. 3-D postprocessing is performed by technologist including MIP imaging Radiation Dose : CTDI vol 22.75 mGy, DLP 865.53 mGy*cm. Findings: Lungs: The lungs are clear. Pleura: Unremarkable Heart/Great vessels: The visualized heart is unremarkable. No cardiomegaly or pericardial effusion. M ild coronary atherosclerosis. No pulmonary embolism, aneurysm, or dissection. Mediastinum: Unremarkable Soft tissues/Bones: Mild multilevel degenerative changes of the thoracic spine. Hypoattenuating left thyroid nodule. Right renal cyst. The partially visualized upper abdomen is with in normal limits. Impression: 1. No evidence of pulmonary embolism, aortic aneurysm, or dissection.
[2024-04-10 20:03] LABS: % Iron Saturation 10.4 % (20-55)
[2024-04-10 20:21] LABS: Ferritin 2088.1 ng/mL (22-322)
--- NOTE | 2024-04-10 22:10 | DVHINCON2 ---
Date of service: Apr 10, 2024 Family History: Cardiovascular disease G8 FATHER, Onset:60 years & older G8 BROTHER, Onset:60 years & older G8 BROTHER, Onset:60 years & older Allergies: Coded Allergies: Levofloxacin (Verified Allergy, Unknown, 09/18/18) Quinolones (Verified Allergy, Unknown, 09/18/18) Home Meds Unable to Obtain Active Prescriptions or Reported Meds Vital Signs Vital Signs Date Time Temp Pulse Resp B/P (MAP) Pulse Ox O2 Delivery O2 Flow Rate FiO2 04/10/24 21:15 98.8 97 14 124/54 (77) 95 98.8 04/10/24 08:00 Room Air* 0 21 Labs/Diagnostic Data Labs Test 04/10/24 19:30 04/10/24 14:10 04/10/24 11:40 04/10/24 05:55 Range/Units Iron Level 23 L 65-175 ug/dL Total Iron Binding Capacity 221 L 250-425 ug/dL Percent Iron Saturation 10.4 L 20-55 % Ferritin 2088.1 H 22-322 ng/mL Folic Acid > 24.00 >5.38 ng/mL Direct Bilirubin 0.2 <0.3 mg/dL D-Dimer, Quantitative 19.03 H 0.0-0.49 mg/L FEU Reticulocyte Count (auto) 0.23 L 0.5-1.5 % Test 04/10/24 05:53 04/09/24 12:04 04/09/24 05:30 04/08/24 15:17 Range/Units White Blood Count 6.4 # 4.4-10.8 10^3/uL Red Blood Count 4.69 4.5-5.90 10^6/uL Hemoglobin 14.7 13.5-17.5 g/dL Hematocrit 42.9 41.0-53.0 % Mean Corpuscular Volume 91.4 80.0-100.0 fL Mean Corpuscular Hemoglobin 31.2 28.0-32.0 pg Mean Corpuscular Hemoglobin Concent 34.2 32.0-36.0 g/dL Red Cell Distribution Width 14.0 11.8-14.3 % Platelet Count 67 L 140-450 10^3/uL Mean Platelet Volume 9.8 6.9-10.8 fL Neutrophils (%) (Auto) 70.7 37.0-80.0 % Lymphocytes (%) (Auto) 18.2 10.0-50.0 % Monocytes (%) (Auto) 9.7 0.0-12.0 % Eosinophils (%) (Auto) 1.1 0.0-7.0 % Basophils (%) (Auto) 0.3 0.0-2.0 % Neutrophils # (Auto) 4.5 1.6-8.6 10 ^3/uL Lymphocytes # (Auto) 1.2 0.4-5.4 10 ^3/uL Monocytes # (Auto) 0.6 0-1.3 10 ^3/uL Eosinophils # (Auto) 0.1 0-0.8 10 ^3/uL Basophils # (Auto) 0 0-0.2 10 ^3/uL Nucleated Red Blood Cells 0.0 % Erythrocyte Sedimentation Rate 4 0-20 mm/hr Sodium Level 139 # 136-145 mmol/L Potassium Level 3.3 L 3.5-5.1 mmol/L Chloride Level 106 98-107 mmol/L Carbon Dioxide Level 24 20-31 mmol/L Anion Gap 9 5-15 Blood Urea Nitrogen 12 9-23 mg/dL Creatinine 1.01 0.700-1.30 mg/dL Glomerular Filtration Rate Calc 77 >90 mL/min BUN/Creatinine Ratio 11.9 10.0-20.0 Serum Glucose 96 74-106 mg/dL Calcium Level 8.5 L 8.7-10.4 mg/dL Total Bilirubin 0.7 0.2-1.0 mg/dL Gamma Glutamyl Transpeptidase 153 H <73 U/L Aspartate Amino Transferase (AST) 71 H 13-40 U/L Alanine Aminotransferase (ALT) 59 H 7-40 U/L Alkaline Phosphatase 143 H 46-116 U/L C-Reactive Protein High Sensitivity 11.08 H <1.0 mg/dL Total Protein 5.7 5.7-8.2 g/dL Albumin 3.6 3.2-4.8 g/dL Lipase 54 H 12-53 U/L Prothrombin Time 11.6 9.3-11.8 sec Prothrombin Time INR 1.10 0.9-1.15 Activated Partial Thromboplast Time 28.8 24.5-34.5 SEC Platelet Estimate Decreased Large Platelets Few Red Blood Cell Morphology Normal Lactate Dehydrogenase 429 H 120-246 U/L Hepatitis A IgM Antibody Negative Hepatitis A Antibody Total Negative Negative Hepatitis B Surface Antigen Negative Negative Hepatitis B Surface Antibody Negative Negative Hepatitis B Core Total Antibody Negative Negative Hepatitis B Core IgM Antibody Negative Hepatitis C Antibody Negative Negative Free Prostate Specific Antigen 2.67 N/A ng/mL Percent Free Prostate Specific Ag 15.2 . % Prostate Specific Antigen Total 17.6 H 0.0-4.0 ng/mL Test 04/07/24 21:00 04/07/24 18:44 04/07/24 11:44 04/07/24 04:06 Range/Units Urine Color Yellow Yellow Urine Clarity Turbid H Clear Urine pH 5.5 5.0-9.0 Urine Specific Pratt 1.027 1.001-1.035 Urine Protein 1+ H Negative Urine Ketones Negative Negative Urine Blood Negative Negative /uL Urine Nitrite Negative Negative Urine Bilirubin Negative Negative Urine Urobilinogen 2 H Negative mg/dL Urine Leukocyte Esterase Negative Negative /uL Urine RBC <1 0 - 3 /hpf Urine WBC <1 0 - 3 /hpf Urine Squamous Epithelial Cells Few <5 /hpf Urine Bacteria None seen None Seen /hpf Urine Mucus Few None Seen Urine Yeast (Budding) Occasional None Seen /hpf Urine Glucose Normal Normal mg/dL Urine Opiates Screen Neg NEGATIVE Urine Fentanyl Screen Neg NEGATIVE Urine Barbiturates Screen Neg NEGATIVE Urine Phencyclidine Screen Neg NEGATIVE Urine Amphetamines Screen Neg NEGATIVE Urine Benzodiazepines Screen Neg NEGATIVE Urine Cocaine Screen Neg NEGATIVE Urine Cannabinoids Screen Neg NEGATIVE Lactic Acid Level 1.1 0.4-2.0 mmol/L Plasma/Serum Blood Alcohol < 3.0 <10 mg/dL HIV (1&2) Antibody Negative Negative Influenza Type A Antigen Negative Negative Influenza Type B Antigen Negative Negative SARS-CoV-2 Antigen (Rapid) Negative NEGATIVE Test 04/07/24 03:40 04/06/24 22:38 04/06/24 21:33 04/06/24 21:03 Range/Units Vitamin B12 Level 535 211-911 pg/mL Vitamin D 25-Hydroxy 31.9 30.0-100 ng/mL Thyroid Stimulating Hormone (TSH) 0.33 L 0.55-4.78 uIU/mL Free Thyroxine (T4) Calculated 1.26 0.89-1.76 ng/dL Free Triiodothyronine (T3) pg/mL 2.35 2.3-4.2 pg/mL Troponin I High Sensitivity 38 </=54 ng/L B-Type Natriuretic Peptide 123.23 0-100 pg/mL POC Glucose 126 H 70-106 mg/dl Microbiology Date/Time Source Procedure Growth Status 04/08/24 18:57 Nose MRSA Screen - Final Complete 04/07/24 21:00 Voided Urine Urine Culture - Final Complete 04/07/24 21:00 Sputum Gram Stain - Final Complete 04/07/24 21:00 Sputum Respiratory Culture - Final Complete 04/07/24 03:40 Blood Blood Culture - Preliminary NO GROWTH AFTER 72 HOURS OF INCUBATION. Resulted Plan/Recommendation ASSESSMENT AND PLAN: ID Problem List: - acute generalized weakness - acute lower extremity weakness - falls - thrombocytopenia - elevated liver enzymes - fever of unknown origin - elevated ferritin Assessment This is a 78 y.o. male with a past medical history of BPH recently started on medication, type 1 diabetes mellitus, cardiovascular disease, hypertension, and cataract surgery, who presents with acute generalized weakness. The patient began experiencing weakness in his lower extremities yesterday, leading to tripping and mechanical falls due to inability to lift his legs. He has not had episodes like this before. He continues to feel unsteady but reports improvement after a day or two of antibiotics. He also reports nausea and fevers up to 102.6F on admission, now resolved. Laboratory studies reveal thrombocytopenia with platelet counts decreasing from 112 on admission to 74, elevated liver enzymes (ALT 96, AST 123, alkaline phosphatase 143), elevated ferritin (2088.1), and elevated CRP (11.8). LFTs are rising. Imaging studies including chest X-ray and head CT are unremarkable. Brain MRI is non-contributory. Liver ultrasound shows hepatic steatosis and hepatomegaly. Renal ultrasound shows an enlarged prostate. Blood cultures were obtained prior to initiation of antibiotics. Hepatitis panel, HIV, COVID-19, and influenza tests are negative. Plan: - Continue ceftriaxone and vancomycin for now - Order viral serologies for EBV, CMV, parvovirus B19, and HSV - Consider CT abdomen/pelvis to evaluate for hepatosplenomegaly - Consult Gastroenterology if LFTs continue to rise and thrombocytopenia worsens - Monitor LFTs and platelet counts closely - Consider testing for tick-borne and mosquito illnesses (Lyme disease, rickettsial infections, dengue/chikungunya, [place] virus ) despite negative exposure history - Monitor for signs of HLH, although ferritin is below typical thresholds - tranfusion if plts drop below 50, or if there are signs of bleeding - Continue to monitor neurological status and strength improvement Isolation Precautions: standard Assessment and plan was discussed with the patient as written above Plan is subject to change pending incorporation of new incoming information/diagnostics. Updates may be added as addendum at the bottom (OR TOP) of this note Thank you for interesting consult. ID will continue to follow. Please contact Infectious Disease for any questions or concerns. Fab Webster M.D. [facility] Ph: ? - History: The patient's chart and medications were reviewed in detail, and the patient was seen and examined. History obtained from: patient Mr. Rodríguez is a 78 y.o. male with a past medical history of BPH recently started on medication, type 1 diabetes mellitus, cardiovascular disease, hypertension, and cataract surgery, who presents with acute generalized weakness. Yesterday, he began feeling weak in his lower extremities, experiencing tripping and mechanical falls because he is unable to lift his legs. He has never had episodes like this before. He continues to feel unsteady but reports feeling better after a day or two of antibiotics. He is also experiencing nausea and fevers. He denies rash, recent travel history, bug bites, tick bites, animal bites, exposure to rodents, mold exposures, diarrhea, or abdominal pain. He lives with his daughter. He denies smoking, alcohol use, and drug use. He is allergic to levofloxacin and other quinolones. Review of Systems: A complete 10 system review of systems was completed and negative except as noted in the HPI or here. ROS: - CONSTITUTIONAL: Denies weight loss. Reports fever and nausea. - HEENT: Denies changes in vision and hearing. - RESPIRATORY: Denies shortness of breath and cough. - CV: Denies palpitations and chest pain. - GI: Denies abdominal pain, vomiting, and diarrhea. - : Denies dysuria and urinary frequency. - MSK: Reports lower extremity weakness. - SKIN: Denies rash and pruritus. - NEUROLOGICAL: Denies headache and syncope. - PSYCHIATRIC: Denies recent changes in mood. Denies anxiety and depression. Past Medical History: Diagnosis BPH (benign prostatic hyperplasia), recently started on medication in July Type 1 diabetes mellitus Cardiovascular disease Hypertension Cataract surgery Past Surgical History: History reviewed. Cataract surgery (date not specified). Home Medications: Prior to Admission medications - Medication: BPH medication (name not specified) - Sig: As prescribed Allergies: - Allergic to levofloxacin and other quinolones Family History: Family history not provided. Social History: Socioeconomic History - Marital status: Not specified - Residence: Lives with his daughter Occupational History - Not specified Tobacco Use - Smoking status: Never - Smokeless tobacco: Never Vaping Use - Vaping status: Never Used Substance and Sexual Activity - Alcohol use: Never - Drug use: Never - Sexual activity: Not specified Other Topics Concern - Not specified Social Determinants of Health - Not specified - Objective: Vital Signs on Arrival: Temp: 99.6F (37.6C)?BP: 133/57 mmHg?Pulse: 101 bpm?Resp: 16/min?SpO2: 95% on room air Most Recent Vital Signs: Temp: Afebrile Admission Weight: Weight not specified?BMI not specified Physical Exam: General:?NAD, well-appearing Neck:?Supple. No masses. HEENT:?PERRL. Normal lids and conjunctiva. Moist mucous membranes. Oropharynx without lesions, exudates, or excessive erythema. Normal appearance of the external aspects of the nose and ears. Heart:?Regular rhythm, normal rate. No murmur. No lower extremity edema. Lungs:?Normal respiratory effort. Clear to auscultation bilaterally. No wheezes. No crackles. Abdomen:?Soft. Non-tender. Non-distended. No masses or abdominal hernia. MSK:?5/5 strength in upper and lower extremities. No digital cyanosis. Normal tone in all 4 limbs. Skin:?Warm and dry, no rashes. Neuro:?Alert and oriented. No facial droop or slurred speech. Extra-ocular movements intact. Sensation intact to soft touch in all 4 limbs. Psych:?Appropriate mood. Full affect. Oriented to person, place, time, and situation. Lines: Active Lines - None specified - Diagnostic Studies: Available diagnostic studies were reviewed personally. Significant relevant results and findings are outlined below or addressed in the Assessment and Plan above. Pertinent Imaging: Chest X-ray: - Impression: - No acute disease. Head CT: - Impression: - No acute cranial abnormality. Brain MRI: - Impression: - Unremarkable non-contrast MRI. Liver Ultrasound: - Impression: - No sonographic evidence of gallstones or acute cholecystitis. - Hepatic steatosis and hepatomegaly present. Renal Ultrasound: - Impression: - Enlarged prostate. CT Angiography: - Impression: - No evidence of pulmonary embolism, aortic aneurysm, or dissection. - Laboratory Data: - Complete Blood Count: WBC: 5.4 - Hemoglobin: 15.1 - Platelet count: 112 on admission, decreased to 74 - Basic Metabolic Panel: - Glucose: 126 - Sodium: 135 - Potassium: 3.9 BUN: 15 - Creatinine: 1.04 - Liver Function Tests: ALT: 96 AST: 123 - Alkaline phosphatase: 143 - Inflammatory Markers: - Ferritin: 2088.1 CRP: 11.8 - Other Labs: - Lipase: 54 - Thyroid Studies: - Free T3: 2.35 - Free T4: 1.26 TSH: 0.33 - Infectious Disease Tests: - Hepatitis panel: Negative - HIV: Negative - COVID-19: Negative - Influenza: Negative Blood Cultures: - Obtained on 04/07/2024 prior to initiation of antibiotics. - Plan discussed with: Patient FAB WEBSTER MD Apr 10, 2024 22:10
[2024-04-11] VITALS (8 sets, daily range): BP systolic 102–122; BP diastolic 40–67; PULSE 62–90; RESP 13–20; TEMP 97.9–99.2; O2SAT 91–96
[2024-04-11 05:46] LABS: Basophils # (auto) 0 10 ^3/uL (0-0.2); Basophils % (auto) 0.7 % (0.0-2.0); Eosinophils # (auto) 0.1 10 ^3/uL (0-0.8); Eosinophils % (auto) 2.1 % (0.0-7.0); Hematocrit 37.1 % (41.0-53.0); Hemoglobin 12.8 g/dL (13.5-17.5); Lymphocytes % (auto) 17.4 % (10.0-50.0); Mean Corpuscular Hemoglobin 31.2 pg (28.0-32.0); Mean Corpuscular Hgb Conc. 34.4 g/dL (32.0-36.0); Mean Corpuscular Volume 90.7 fL (80.0-100.0); Monocytes # (auto) 0.8 10 ^3/uL (0-1.3); Monocytes % (auto) 13.6 % (0.0-12.0); Neutrophils # (auto) 3.9 10 ^3/uL (1.6-8.6); Neutrophils % (auto) 66.2 % (37.0-80.0); Platelet Count (auto) 74 10^3/uL (140-450); Red Blood Cells 4.09 10^6/uL (4.5-5.90); White Blood Cell 5.9 10^3/uL (4.4-10.8)
[2024-04-11 06:03] LABS: Alanine Aminotransferase 96 U/L (7-40); Alkaline Phosphatase 143 U/L (46-116); Anion Gap 9 (5-15); Blood Urea Nitrogen 13 mg/dL (9-23); Calcium 8.5 mg/dL (8.7-10.4); Carbon Dioxide 23 mmol/L (20-31); Chloride 108 mmol/L (98-107); Glucose 100 mg/dL (74-106); Potassium 2.9 mmol/L (3.5-5.1); Sodium 140 mmol/L (136-145)
[2024-04-11 06:04] LABS: Albumin 3.1 g/dL (3.2-4.8); Aspartate Aminotransferase 123 U/L (13-40); Bilirubin, Total 0.6 mg/dL (0.2-1.0); Total Protein 4.9 g/dL (5.7-8.2)
[2024-04-11] MEDS: POTASSIUM CHLORIDE 60 MEQ, LIDOCAINE 1% (LOCAL ANESTH.) 6 ML in SODIUM CHL 0.9% 500 ML IV ONE (11:07)
[2024-04-11 11:13] LABS: % Iron Saturation 11.3 % (20-55)
--- NOTE | 2024-04-11 13:58 | DVH ---
CT CT AB PEL WO CON-NO ORAL OR IV INDICATION: evaluate for abdoinal abscess and splenomegaly EXAM DATE: 04/11/2024 01:23 PM COMPARISON: [facility] on DOS: 09/05/21 RADIATION DOSE: CTDIvol: 13.54 mGy, DLP: 714.71 mGy*cm PROCEDURE: Helical CT images were obtained of the abdomen and pelvis without IV contrast Sagittal an d coronal reconstructions are provided. ORAL CONTRAST: None. ADDITIONAL IMAGES / REFORMATS: None All CT scans at this medical facility are performed using dose modulation techniques as appropriate t o a performed exam including the following: Automated exposure control was utilized; adjustment of th e MA and/or KV according to patient size; and use of iterative reconstruction technique. FINDINGS: LUNG BASE: Normal. LIVER: Low in attenuation. GALLBLADDER AND BILIARY TREE: No calcified gallstones. Normal caliber wall. No intra- or extrahepatic biliary ductal dilation. PANCREAS: Normal. SPLEEN: Normal. BOWEL: Normal. Normal appendix. ADRENALS: Normal. KIDNEYS AND URETER: 2.6 cm right renal cystic lesion. Left parapelvic cysts are noted. BLADDER: Contrast noted in the bladder. REPRODUCTIVE ORGANS: Large prostate. LYMPH NODES:No lymphadenopathy. PERITONEUM: No ascites or free air. No other fluid collection. VESSELS: Scattered atherosclerotic calcifications are noted. RETROPERITONEUM: Normal. ABDOMINAL WALL: Normal. BONES: Scattered osseous degenerative changes are noted. IMPRESSION: No acute intraabdominal abnormality. Hepatic steatosis. Normal speen. No focal fluid collection. Prostatomegaly.
--- NOTE | 2024-04-11 21:31 | DVHPNRES ---
Progress Note Date Seen: Apr 11, 2024 Resident Creating Document: JHAJJNOEMY RESIDENT Medical Necessity Reason Pt with a Central, PICC or Fol: No Subjective Review of Systems Patient is a 78-year-old with a past medical history of BPH on tamsulosin presented to the ED with a chief complaint of leg weakness and mechanical fall for 1 day prior to admission. Patient reports that his legs have been feeling weak than usual for the last 4-5 months. Patient reported that since Saturday evening on 04/05/2024 he has been feeling more weak than usual. The next day while he was at home his weakness progressed the patient was able to walk slowly but experienced 2-3 falls following which he was brought to the hospital for further evaluation. Patient reported feeling feverish and some nausea. Patient denied chest pain palpitations, abdominal pain, shortness of breath. Patient did not report any recent sick contacts, denied recent travel, no diarrheal illness, no cough, no rashes on the body, no difficulty swallowing, no burning pain on urination or frequency or hesitancy, no chills or rigors. Past medical history: BPH, aortic valve sclerosis Past surgical history: cataract, hernia Family history: None Social history: Patient lives with denies smoking, alcohol, drug use Home meds: Tamsulosin, multivitamins, herbal supplements Review of systems 04/07- Patient seen and examined at the bedside. Patient is alert and oriented to time, place and person. Patient reports no shortness a breath, chest pain, abdominal pain, dysuria, diarrhea or constipation. Patient reports that his legs have been feeling weaker than usual since the past few days. Patient's vitals show BP 151/67 mmHg, heart rate 98 beats per minute, temperature 98.5 F. patient had episode of fever in the afternoon recorded up to 102.6 degree F following which acetaminophen was given which relieved the fever. Sample for blood culture, urine culture, respiratory culture has been sent. 04/08- patient was alert and oriented to time, place and person. Patient reports feeling better than yesterday. Overnight patient had 1 episode of fever recorded up to 102.3 F which was relieved with the acetaminophen. Further therapy re-evaluated the patient reported that patient has improved humidity and improved balance. Patient has dry coughing with minimal whitish expectoration. Patient denies shortness of breath, chest pain, abdominal pain, diarrhea, dysuria. Patient reports mild difficulty in initiating urination, dribbling following which digital rectal examination was done on which firm enlarged nontender mass was felt in the anterior anal canal. 04/09- patient is alert and oriented to time, place and person. Patient significantly better than yesterday and is sitting in the chair reading book. Patient had mild episode of fever recorded 99.3 F. patient is [place] [address]/mm3. Patient reports improved balance but still feels legs are weak. Patient has dry cough. Denies shortness of breath, chest pain. 04/10- patient is alert and oriented to time, place and person. Patient feels leg weakness but similar to the day before. Patient had episodes of fever recorded up to 99.8 [place] [address]/mm3. No active complaints overnight. 04/11- patient is alert and oriented to time, place and person. Patient reported that his left knee feels weak and feels like it is giving out when it is walking. Patient no episodes of fever overnight. [place] [address]/mm3. Patient reports that he is having loose stools but no abdominal pain, no blood in stool. Patient's vitals stable. Input output 4000/3600 mL. Patient's potassium levels in the morning was 2.9mmol/L which was adequately replaced with 60 mEq IV potassium. Patient's hemoglobin dropped from 14.7-12.8 mg/dL. Objective vital signs Vital Sign Date Time Temp Pulse Resp B/P (MAP) Pulse Ox O2 Delivery O2 Flow Rate FiO2 04/11/24 21:00 99.2 90 18 117/47 (70) 91 99.2 04/11/24 08:00 Room Air* 0 21 Total Intake and Output 04/10/24 04/10/24 04/11/24 15:00 23:00 07:00 Intake Total 50 ml 1250 ml 360 ml Output Total 0 ml Balance 50 ml 1250 ml 360 ml medications Current Medications Medications Dose Ordered Sig/Antonette Route Start Time Stop Time Status Last Admin Dose Admin Ondansetron HCl 4 mg Q4HP PRN IV 04/07/24 01:15 Morphine Sulfate 2 mg Q4HPRN PRN IV 04/07/24 01:15 Nitroglycerin 0.4 mg Q5MINP PRN SL 04/07/24 01:15 Morphine Sulfate 2 mg Q30M PRN IV 04/07/24 01:15 Tamsulosin HCl 0.4 mg QPM PO 04/07/24 18:00 04/11/24 18:00 0.4 MG Labetalol HCl 10 mg Q4HP PRN IV 04/07/24 18:15 Ibuprofen 400 mg Q4HPRN PRN PO 04/08/24 10:30 Examination Physical Examination Gen - no pallor, no icterus, no cyanosis, no clubbing, no LAD, no edema . Skin - Patients skin is warm and dry. HEENT - normocephalic, atraumatic, moist mucous membranes. Neck - full ROM, no LAD, no JVD Pulmonary - B/L vesicular breath sounds. no crackles , no wheezing, no stridor. cardiovascular - normal S1,S2 heard. no murmurs heard. peripheral pulses normal radial 2+, pedal 2+. capillary refill normal <2 secs. GI - soft abdomen without tenderness to palpation . no hepatospleenomegaly. Bowel sounds normoactive Neurological - Patient is A/O X 3 . Bilateral upper extremity tone normal, bilateral lower extremity tone slightly increased, Bilateral upper extremity strength 5/5, bilateral lower extremity strength 5/5, deep tendon reflexes 2+, no facial droop, normal speech, resting tremor noted in right hand on examination, no sensory deficiets, short stepped wide-based gait. Cranial nerves 3 4 and 6 normal, pupils isocoric and reactive, normal facial sensation, normal cranial nerve 7 exam, no auditory deficit, cranial nerve 9, 10, 11, 12 normal exam Digital rectal exam- from enlarged nontender mass felt in the anterior anal canal laboratory and microbiology Laboratory Tests 04/11/24 04:57 Test 04/11/24 04:57 Range/Units Serum Glucose 100 74-106 mg/dL Microbiology Date/Time Source Procedure Growth Status 04/10/24 11:40 Blood Blood Culture - Preliminary NO GROWTH AFTER 24 HOURS OF INCUBATION. Resulted 04/08/24 18:57 Nose MRSA Screen - Final Complete 04/07/24 21:00 Voided Urine Urine Culture - Final Complete 04/07/24 21:00 Sputum Gram Stain - Final Complete 04/07/24 21:00 Sputum Respiratory Culture - Final Complete Problem List/Assessment/Plan Problem List/Assessment/Plan Assessment and plan # SIRS # Fever of unknown origin - on admission patient had temperature more than 100.1 F and heart rate more than 90 - preliminary urine culture showed no growth - blood culture at 48 hours of incubation showed no growth - respiratory Gram stain and culture shows Gram-positive cocci in pairs and Gram-positive cocci in chains, Gram-positive rods - no rash on the body - no history of recent travel, no sick contacts, no diarrheal illness, no dysuria - lactic acid within normal limits - HIV 1 and 2 antibody negative - COVID-19 negative, influenza type a and B negative - hepatitis panel negative - 03/11- infectious disease with Dr. Webster who recommended getting CT abdomen pelvis with IV contrast which showed no acute intracranial abnormality, hepatic steatosis, normal spleen, no focal fluid collection, prostatomegaly. viral serologies for EBV, CMV, parvovirus B19, HSV were ordered. Recommended continuing with ceftriaxone 1 g IV daily. # suspected community-acquired pneumonia likely due to Gram +/-bacteria - preliminary report of sputum sample for Gram stain and culture showed many Gram-positive cocci in pairs, many Gram-positive cocci in chains, many Gram- positive rods - patient is started on vancomycin and ceftriaxone - vancomycin stopped on 03/08 - patient was on ceftriaxone 1 g IV daily # thrombocytopenia - patient's platelets count trends 112--> 114--> 91--> 69 - peripheral blood smear pending - patient has a associated fever and lower extremity weakness ?TTP - elevated LDH 429, and CRP 11.08 - blood smear shows normocytic normochromic red cells, no schistocytes diminished platelets and some large platelets, some increased number of monocytes. - Heme-Onc consult appreciated with Dr. Morocho who recommended indirect bilirubin, haptoglobin, direct Rona, reticulocyte count and assess the clinical indication of TTP, continuing supportive care with antibiotics and follow up as an outpatient in the clinic. # bilateral lower extremity weakness - on neuro exam bilateral lower extremity strength 5/5, knee and ankle reflex 2+, plantar reflex downgoing - normal cerebellar exam - short stepped wide based gait with poor balance - resting tremor noted in the right hand - vitamin B12 normal - physical therapy evaluation-patient walked 50 ft with front wheel walker # elevated ALP and GGT # ruled out PE, CT angio negative # hypokalemia Supplemented adequately with 60 mEq IV potassium # transaminitis # hepatic steatosis and hepatomegaly on liver ultrasound - hepatitis panel negative - CMV, EBV serologies ordered # Ruled out stroke - head CT showed no acute intracranial abnormality - brain MRI unremarkable # History of BPH - Patient continued on tamsulosin - PSA pending - on digital rectal examination prostatism nontender firm likely ruling out prostatitis Goals of care discussed with the patient and the family for over 25 minutes. Full code Plan discussed with Dr. Larry Plan discussed with: Patient, Spouse Date of Service: Apr 11, 2024 Billing Provider: HATTIE STEWART MD Common Visit Codes: [id number] INP/OBS CARE(HIGH) NOEMY LORD RESIDENT Apr 11, 2024 21:31 HATTIE STEWART MD Apr 12, 2024 09:10
--- NOTE | 2024-04-11 22:37 | DVHPN2 ---
Consult Progress Note Date Seen: Apr 11, 2024 Subjective Patient reports: Other (states lower back pain continues to imrpove, blood pressur ehas been soft 102/40 ) Objective vital signs Vital Sign Date Time Temp Pulse Resp B/P (MAP) Pulse Ox O2 Delivery O2 Flow Rate FiO2 04/11/24 21:00 99.2 90 18 117/47 (70) 91 99.2 04/11/24 08:00 Room Air* 0 21 Total Intake and Output 04/10/24 04/10/24 04/11/24 15:00 23:00 07:00 Intake Total 50 ml 1250 ml 360 ml Output Total 0 ml Balance 50 ml 1250 ml 360 ml medications Current Medications Medications Dose Ordered Sig/Antonette Route Start Time Stop Time Status Last Admin Dose Admin Ondansetron HCl 4 mg Q4HP PRN IV 04/07/24 01:15 Morphine Sulfate 2 mg Q4HPRN PRN IV 04/07/24 01:15 Nitroglycerin 0.4 mg Q5MINP PRN SL 04/07/24 01:15 Morphine Sulfate 2 mg Q30M PRN IV 04/07/24 01:15 Tamsulosin HCl 0.4 mg QPM PO 04/07/24 18:00 04/11/24 18:00 0.4 MG Labetalol HCl 10 mg Q4HP PRN IV 04/07/24 18:15 Ibuprofen 400 mg Q4HPRN PRN PO 04/08/24 10:30 Physical Exam: General:?NAD, well-appearing Neck:?Supple. No masses. HEENT:?PERRL. Normal lids and conjunctiva. Moist mucous membranes. Oropharynx without lesions, exudates, or excessive erythema. Normal appearance of the external aspects of the nose and ears. Heart:?Regular rhythm, normal rate. No murmur. No lower extremity edema. Lungs:?Normal respiratory effort. Clear to auscultation bilaterally. No wheezes. No crackles. Abdomen:?Soft. Non-tender. Non-distended. No masses or abdominal hernia. MSK:?5/5 strength in upper and lower extremities. No digital cyanosis. Normal tone in all 4 limbs. Skin:?Warm and dry, no rashes. Neuro:?Alert and oriented. No facial droop or slurred speech. Extra-ocular movements intact. Sensation intact to soft touch in all 4 limbs. Psych:?Appropriate mood. Full affect. Oriented to person, place, time, and situation. laboratory and microbiology Laboratory Tests 04/11/24 04:57 Test 04/11/24 04:57 Range/Units Serum Glucose 100 74-106 mg/dL Problem List/Assessment/Plan Problems(with codes): (1) Frequent falls (2) Lower extremity weakness Problem List/Assessment/Plan ID Problem List: - acute generalized weakness - acute lower extremity weakness - falls - thrombocytopenia - elevated liver enzymes - fever of unknown origin - elevated ferritin Assessment This is a 78 y.o. male with a past medical history of BPH recently started on medication, type 1 diabetes mellitus, cardiovascular disease, hypertension, and cataract surgery, who presents with acute generalized weakness. The patient began experiencing weakness in his lower extremities yesterday, leading to tripping and mechanical falls due to inability to lift his legs. He has not had episodes like this before. He continues to feel unsteady but reports improvement after a day or two of antibiotics. He also reports nausea and fevers up to 102.6F on admission, now resolved. Laboratory studies reveal thrombocytopenia with platelet counts decreasing from 112 on admission to 74, elevated liver enzymes (ALT 96, AST 123, alkaline phosphatase 143), elevated ferritin (2088.1), and elevated CRP (11.8). LFTs are rising. Imaging studies including chest X-ray and head CT are unremarkable. Brain MRI is non-contributory. Liver ultrasound shows hepatic steatosis and hepatomegaly. Renal ultrasound shows an enlarged prostate. Blood cultures were obtained prior to initiation of antibiotics. Hepatitis panel, HIV, COVID-19, and influenza tests are negative. 04/11: repeat blood cultures continue to be negative for 24 hours, Ct of abdomen and pelvis show no acute intracranial hepatosplenomegaly , plateletes are low at 74, hemoglobin is 12.8 Plan: - Continue ceftriaxone - Order viral serologies for EBV, CMV, parvovirus B19, and HSV - Consult Gastroenterology if LFTs continue to rise and thrombocytopenia worsens - Monitor LFTs and platelet counts closely - Consider testing for tick-borne and mosquito illnesses (Lyme disease, rickettsial infections, dengue/chikungunya, [place] virus ) despite negative exposure history - Monitor for signs of HLH, although ferritin is below typical thresholds - tranfusion if plts drop below 50, or if there are signs of bleeding - Continue to monitor neurological status and strength improvement Plan discussed with: Other FAB MORLEY MD Apr 11, 2024 22:37
[2024-04-12] VITALS (7 sets, daily range): BP systolic 116–132; BP diastolic 52–62; PULSE 53–90; RESP 16–19; TEMP 97.9–98.7; O2SAT 91–96
[2024-04-12 06:31] LABS: Basophils # (auto) 0 10 ^3/uL (0-0.2); Basophils % (auto) 0.5 % (0.0-2.0); Eosinophils # (auto) 0.1 10 ^3/uL (0-0.8); Eosinophils % (auto) 1.9 % (0.0-7.0); Hematocrit 37.8 % (41.0-53.0); Hemoglobin 13.1 g/dL (13.5-17.5); Lymphocytes # (auto) 1.1 10 ^3/uL (0.4-5.4); Lymphocytes % (auto) 17.1 % (10.0-50.0); Mean Corpuscular Hemoglobin 31.6 pg (28.0-32.0); Mean Corpuscular Hgb Conc. 34.8 g/dL (32.0-36.0); Mean Corpuscular Volume 90.9 fL (80.0-100.0); Monocytes % (auto) 16.4 % (0.0-12.0); Neutrophils # (auto) 4.1 10 ^3/uL (1.6-8.6); Neutrophils % (auto) 64.1 % (37.0-80.0); Platelet Count (auto) 124 10^3/uL (140-450); Red Blood Cells 4.16 10^6/uL (4.5-5.90); Red Cell Distribution Width 14.2 % (11.8-14.3); White Blood Cell 6.4 10^3/uL (4.4-10.8)
[2024-04-12 06:45] LABS: Alanine Aminotransferase 124 U/L (7-40); Albumin 3.3 g/dL (3.2-4.8); Alkaline Phosphatase 191 U/L (46-116); Anion Gap 9 (5-15); Aspartate Aminotransferase 111 U/L (13-40); BUN/Creatinine Ratio 13.8 (10.0-20.0); Bilirubin, Total 0.7 mg/dL (0.2-1.0); Blood Urea Nitrogen 12 mg/dL (9-23); Calcium 8.9 mg/dL (8.7-10.4); Carbon Dioxide 22 mmol/L (20-31); Chloride 109 mmol/L (98-107); Glucose 123 mg/dL (74-106); Potassium 3.3 mmol/L (3.5-5.1); Sodium 140 mmol/L (136-145); Total Protein 5.4 g/dL (5.7-8.2)
[2024-04-12] MEDS: cefTRIAXone 1GM/50ML D5W 50 ML IV ONE (11:17)
[2024-04-12] MEDS: POTASSIUM CHL 20 Meq TABLET PO ONE (11:17)
--- NOTE | 2024-04-12 12:02 | DVH ---
CLINICAL INDICATION: left knee pain TECHNIQUE: XY L KNEE 4V XRAY Comparison: None FINDINGS/IMPRESSION: : There is no evidence of acute fracture or dislocation. Soft tissues are unremarkable. Moderate joint effusion.
[2024-04-12] MEDS: KETOROLAC TROMETH 30 MG/ML 1ML VIAL IV ONE (14:12)
--- NOTE | 2024-04-12 14:19 | DVHPNRES ---
Progress Note Date Seen: Apr 12, 2024 Resident Creating Document: RACHEL FENG RESIDENT Medical Necessity Reason Pt with a Central, PICC or Fol: No Subjective Review of Systems Patient was seen and examined at bedside. He is alert and oriented to time, place and person. Patient reported that his left knee feels weak and it is painful. Left knee x-rays demonstrated moderate effusion. no episodes of fever overnight. Platelets count went up to 127. Patient's are vitals stable. Replaced potassium today. Alkaline phosphatase is trending up, ALT is also trending up. Order MRCP. Objective vital signs Vital Sign Date Time Temp Pulse Resp B/P (MAP) Pulse Ox O2 Delivery O2 Flow Rate FiO2 04/12/24 13:00 98.3 53 16 126/56 (79) 96 98.3 04/12/24 07:41 Room Air* 0 21 Total Intake and Output 04/11/24 04/11/24 04/12/24 15:00 23:00 07:00 Intake Total 4000 ml 800 ml Output Total 3600 ml 200 ml Balance 400 ml 600 ml medications Current Medications Medications Dose Ordered Sig/Antonette Route Start Time Stop Time Status Last Admin Dose Admin Ondansetron HCl 4 mg Q4HP PRN IV 04/07/24 01:15 Morphine Sulfate 2 mg Q4HPRN PRN IV 04/07/24 01:15 Nitroglycerin 0.4 mg Q5MINP PRN SL 04/07/24 01:15 Morphine Sulfate 2 mg Q30M PRN IV 04/07/24 01:15 Tamsulosin HCl 0.4 mg QPM PO 04/07/24 18:00 04/11/24 18:00 0.4 MG Labetalol HCl 10 mg Q4HP PRN IV 04/07/24 18:15 Ibuprofen 400 mg Q4HPRN PRN PO 04/08/24 10:30 Ceftriaxone Sodium 50 ml @ 100 mls/hr DAILY@09 IV 04/13/24 09:00 Examination General: Awake, alert, comfortable appearing, in no acute distress. HEENT: Head is normocephalic and atraumatic. Pupils are equal, round, and reactive to light. Extraocular muscles are intact. No nasal discharge. No facial trauma. Intraoral exam shows moist mucous membranes with no tonsillar enlargement or exudate. Neck: Supple with no cervical lymphadenopathy No meningismus. No goiter. Heart: Regular rate without murmur, rub, or gallop. Lungs: Equal breath sounds bilaterally with no wheezing, rales, or rhonchi. There is no chest wall tenderness or instability. Abdomen: No external sign of injury. Bowel sounds are present. Abdomen is soft, nontender. No rebound, no guarding, no rigidity. There are no palpable masses. There is no flank pain on exam. Extremities: Strong peripheral pulses. There is no clubbing, no cyanosis, and no edema. Skin: No rash. Neurologic: Cranial nerves II-XII intact without motor, sensory, or cerebellar deficit, no asterixis. laboratory and microbiology Laboratory Tests 04/12/24 06:05 Test 04/12/24 06:05 Range/Units Serum Glucose 123 H 74-106 mg/dL Microbiology Date/Time Source Procedure Growth Status 04/10/24 11:40 Blood Blood Culture - Preliminary NO GROWTH AFTER 48 HOURS OF INCUBATION. Resulted 04/08/24 18:57 Nose MRSA Screen - Final Complete 04/07/24 21:00 Voided Urine Urine Culture - Final Complete 04/07/24 21:00 Sputum Gram Stain - Final Complete 04/07/24 21:00 Sputum Respiratory Culture - Final Complete Labs and/or images reviewed: Labs reviewed by me, Image(s) reviewed by me Problem List/Assessment/Plan Problem List/Assessment/Plan # SIRS # Fever of unknown origin, possible viral syndrome - on admission patient had temperature more than 100.1 F and heart rate more than 90 - urine culture showed no growth - blood culture showed no growth - respiratory Gram stain and culture shows Gram-positive cocci in pairs and Gram-positive cocci in chains, Gram-positive rods, likely normal oral barrie - no rash on the body - no history of recent travel, no contact with farm animals or any other zoonosis, no sick contacts, no diarrheal illness, no dysuria - lactic acid within normal limits - HIV 1 and 2 antibody negative - COVID-19 negative, influenza type a and B negative - hepatitis panel negative - 03/11- infectious disease with Dr. Webster who recommended getting CT abdomen pelvis with IV contrast which showed no acute intracranial abnormality, hepatic steatosis, normal spleen, no focal fluid collection, prostatomegaly. viral serologies for EBV, CMV, parvovirus B19, HSV were ordered. Recommended continuing with ceftriaxone 1 g IV daily. # suspected community-acquired pneumonia likely due to Gram +/-bacteria - preliminary report of sputum sample for Gram stain and culture showed many Gram-positive cocci in pairs, many Gram-positive cocci in chains, many Gram- positive rods, likely normal oral barrie -continue Rocephin - vancomycin stopped on 03/08 # thrombocytopenia, ruled out TTP - patient's platelets count trends 112--> 114--> 91--> 69 - peripheral blood smear without any significant findings per test pilot - patient has a associated fever and lower extremity weakness ?TTP - elevated LDH 429, and CRP 11.08 - blood smear shows normocytic normochromic red cells, no schistocytes diminished platelets and some large platelets, some increased number of monocytes. - Heme-Onc consult appreciated with Dr. Morocho who recommended indirect bilirubin, haptoglobin, direct Rona, reticulocyte count and assess the clinical indication of TTP, continuing supportive care with antibiotics and follow up as an outpatient in the clinic. # bilateral lower extremity weakness - on neuro exam bilateral lower extremity strength 5/5, knee and ankle reflex 2+, plantar reflex downgoing - normal cerebellar exam - short stepped wide based gait with poor balance - resting tremor noted in the right hand - vitamin B12 normal - physical therapy evaluation-patient walked 50 ft with front wheel walker # left knee pain, possible osteoarthrosis Order x-ray, revealed moderate effusion, continue to monitor # elevated ALP and GGT Order MRCP # ruled out PE, CT angio negative # hypokalemia Monitor and replete # transaminitis # hepatic steatosis and hepatomegaly on liver ultrasound - hepatitis panel negative - CMV, EBV serologies ordered # Ruled out stroke - head CT showed no acute intracranial abnormality - brain MRI unremarkable # History of BPH - Patient continued on tamsulosin - PSA elevated - on digital rectal examination prostatism nontender firm likely ruling out prostatitis Goals of care discussed with the patient and the family for over 32 minutes. Full code Plan discussed with Dr. Larry Plan discussed with: Patient, Other (RN) My Orders My Orders Orders - RACHEL FENG RESIDENT Procedure Category Date Status Time L Knee 4v Xray XY 04/12/24 Resulted 10:12 Ceftriaxone 1gm/50ml PHA 04/13/24 In Process D5w (Rocephin) 09:00 Mrcp Mri MRI 04/12/24 Taken 11:23 Date of Service: Apr 12, 2024 Billing Provider: HATTIE STEWART MD Common Visit Codes: [id number] INP/OBS CARE(HIGH) RACHEL FENG RESIDENT Apr 12, 2024 14:19 HATTIE STEWART MD Apr 20, 2024 00:34
--- NOTE | 2024-04-12 14:32 | DVH ---
MRI Abdomen, MRCP without IV Contrast Exam Date: 04/12/2024 01:16 PM Comparison: CT dated 04/11/2024 History: transaminitis Technique: Multisequence multiplanar MRI images were obtained of the abomen. MRCP including 3D SPACE, Radial 2D slabs and SPACE 3D MIP images Findings: Liver: The liver is normal in size without focal lesions. Normal liver contour. Spleen: Unremarkable. Pancreas: Pancreatic duct is unremarkable. 0.7 cm and 1.3 cm cystic pancreatic uncinate lesions. Gallbladder and ducts: The gallbladder is collapsed. Grossly, no acute findings. The cystic duct, ri ght and left hepatic ducts, common hepatic duct, and common bile ducts are unremarkable. The pancre atic duct is within normal limits. Adrenal glands: Unremarkable. Kidneys: Normal enhancement without suspicious lesions or hydronephrosis. Bilateral renal cysts measu ring up to 3.1 cm on the right. Visualized bowel: Grossly unremarkable. Vasculature: Unremarkable. Lymphadenopathy: No evidence for lymphadenopathy. Ascites: Absent. Musculoskeletal: Bone marrow signal is normal. IMPRESSION: Gallbladder is collapsed and grossly within normal limits . Common bile duct is unremarkable . 0.7 cm and 1.3 cm cystic pancreatic uncinate lesions. Differential considerations could include simpl e pancreatic cysts or IPMN. No definite secondary suspicious features, however, intravenous contrast not administered. According to 2017 ACR incidental findings committee, pancreatic cystic lesions that are less than 1.5 cm in size found incidentally on patients greater than 65 years of age should be imaged with contras t-enhanced MRI for pancreas protocol or CT every two years for 5 years until stability of 10 years is confirmed. If after this time the cystic lesion demonstrates stability, no further follow-up is lobito mmended.
--- NOTE | 2024-04-12 22:23 | DVHPN2 ---
Consult Progress Note Date Seen: Apr 12, 2024 Subjective Patient reports: No new complaints (no signs of bleeding , no fevers or joint pain , weakness appears to be resolved , ambulating lower extremities 5/5 strength ) Objective vital signs Vital Sign Date Time Temp Pulse Resp B/P (MAP) Pulse Ox O2 Delivery O2 Flow Rate FiO2 04/12/24 21:30 98.0 83 19 127/54 (78) 92 98.0 04/12/24 20:00 Room Air* 0 21 Total Intake and Output 04/11/24 04/11/24 04/12/24 15:00 23:00 07:00 Intake Total 4000 ml 800 ml Output Total 3600 ml 200 ml Balance 400 ml 600 ml medications Current Medications Medications Dose Ordered Sig/Antonette Route Start Time Stop Time Status Last Admin Dose Admin Ondansetron HCl 4 mg Q4HP PRN IV 04/07/24 01:15 Morphine Sulfate 2 mg Q4HPRN PRN IV 04/07/24 01:15 Nitroglycerin 0.4 mg Q5MINP PRN SL 04/07/24 01:15 Morphine Sulfate 2 mg Q30M PRN IV 04/07/24 01:15 Tamsulosin HCl 0.4 mg QPM PO 04/07/24 18:00 04/12/24 17:10 0.4 MG Labetalol HCl 10 mg Q4HP PRN IV 04/07/24 18:15 Ibuprofen 400 mg Q4HPRN PRN PO 04/08/24 10:30 Ceftriaxone Sodium 50 ml @ 100 mls/hr DAILY@09 IV 04/13/24 09:00 Physical Exam: General:?NAD, well-appearing Neck:?Supple. No masses. HEENT:?PERRL. Normal lids and conjunctiva. Moist mucous membranes. Oropharynx without lesions, exudates, or excessive erythema. Normal appearance of the external aspects of the nose and ears. Heart:?Regular rhythm, normal rate. No murmur. No lower extremity edema. Lungs:?Normal respiratory effort. Clear to auscultation bilaterally. No wheezes. No crackles. Abdomen:?Soft. Non-tender. Non-distended. No masses or abdominal hernia. MSK:?5/5 strength in upper and lower extremities. No digital cyanosis. Normal tone in all 4 limbs. Skin:?Warm and dry, no rashes. Neuro:?Alert and oriented. No facial droop or slurred speech. Extra-ocular movements intact. Sensation intact to soft touch in all 4 limbs. Psych:?Appropriate mood. Full affect. Oriented to person, place, time, and situation. laboratory and microbiology Laboratory Tests 04/12/24 06:05 Test 04/12/24 06:05 Range/Units Serum Glucose 123 H 74-106 mg/dL Problem List/Assessment/Plan Problems(with codes): (1) Lower extremity weakness (2) Frequent falls (3) Elevated liver enzymes (4) Thrombocytopenia (5) Elevated ferritin (6) Fever of unknown origin Problem List/Assessment/Plan ID Problem List: - acute generalized weakness - acute lower extremity weakness - falls - thrombocytopenia - elevated liver enzymes - fever of unknown origin - elevated ferritin Assessment This is a 78 y.o. male with a past medical history of BPH recently started on medication, type 1 diabetes mellitus, cardiovascular disease, hypertension, and cataract surgery, who presents with acute generalized weakness. The patient began experiencing weakness in his lower extremities yesterday, leading to tripping and mechanical falls due to inability to lift his legs. He has not had episodes like this before. He continues to feel unsteady but reports improvement after a day or two of antibiotics. He also reports nausea and fevers up to 102.6F on admission, now resolved. Laboratory studies reveal thrombocytopenia with platelet counts decreasing from 112 on admission to 74, elevated liver enzymes (ALT 96, AST 123, alkaline phosphatase 143), elevated ferritin (2088.1), and elevated CRP (11.8). LFTs are rising. Imaging studies including chest X-ray and head CT are unremarkable. Brain MRI is non-contributory. Liver ultrasound shows hepatic steatosis and hepatomegaly. Renal ultrasound shows an enlarged prostate. Blood cultures were obtained prior to initiation of antibiotics. Hepatitis panel, HIV, COVID-19, and influenza tests are negative. 04/11: repeat blood cultures continue to be negative for 24 hours, Ct of abdomen and pelvis show no acute intracranial hepatosplenomegaly , plateletes are low at 74, hemoglobin is 12.8 04/12: blood cultures remain no growth to date , iron levels remain low, ferratin remains elevated at 2000, LFTs are slowly rising and plateletes has improved to 124 Plan: - Continue ceftriaxone - will fu on viral serologies for EBV, CMV, parvovirus B19, and HSV - consider Consult Gastroenterology if LFTs continue to rise and thrombocytopenia worsens - Monitor LFTs and platelet counts closely - Consider testing for tick-borne and mosquito illnesses (Lyme disease, rickettsial infections, dengue/chikungunya, [place] virus ) despite negative exposure history - Monitor for signs of HLH, although ferritin is below typical thresholds - tranfusion if plts drop below 50, or if there are signs of bleeding - Continue to monitor neurological status and strength improvement Plan discussed with: FAB Keith MD Apr 12, 2024 22:23
[2024-04-13 01:00] VITALS: BP 140/66; PULSE 73; RESP 17; TEMP 98; O2SAT 95
[2024-04-13 05:00] VITALS: BP 128/52; PULSE 80; RESP 19; TEMP 97.3; O2SAT 93
[2024-04-13 05:31] LABS: Hematocrit 36.4 % (41.0-53.0); Hemoglobin 12.1 g/dL (13.5-17.5); Mean Corpuscular Hemoglobin 30.7 pg (28.0-32.0); Mean Corpuscular Hgb Conc. 33.4 g/dL (32.0-36.0); Mean Corpuscular Volume 92.1 fL (80.0-100.0); Platelet Count (auto) 180 10^3/uL (140-450); Red Blood Cells 3.95 10^6/uL (4.5-5.90); Red Cell Distribution Width 14.6 % (11.8-14.3); White Blood Cell 5.7 10^3/uL (4.4-10.8)
[2024-04-13 05:37] LABS: Band Neutrophils % (manual) 0; Basophils % (manual) 0 (0.0-2.0); Blast Cells 0; Eosinophils % (manual) 0 (0-7); Metamyelocytes % 0; Myelocytes % 0; Promyelocytes % 0; Reactive Lymphocytes 0
[2024-04-13 06:46] LABS: Alanine Aminotransferase 95 U/L (7-40); Albumin 3.2 g/dL (3.2-4.8); Alkaline Phosphatase 166 U/L (46-116); Anion Gap 10 (5-15); Aspartate Aminotransferase 63 U/L (13-40); BUN/Creatinine Ratio 15.5 (10.0-20.0); Bilirubin, Total 0.7 mg/dL (0.2-1.0); Blood Urea Nitrogen 13 mg/dL (9-23); Calcium 8.6 mg/dL (8.7-10.4); Carbon Dioxide 23 mmol/L (20-31); Chloride 110 mmol/L (98-107); Glucose 98 mg/dL (74-106); Potassium 3.6 mmol/L (3.5-5.1); Sodium 143 mmol/L (136-145); Total Protein 4.9 g/dL (5.7-8.2)
[2024-04-13 08:00] VITALS: PULSE 74; RESP 16; O2SAT 94
[2024-04-13 08:24] LABS: Lymphocytes % (manual) 23 (10.0-50.0); Monocytes % (manual) 14 (0-12)
[2024-04-13 08:25] LABS: Platelet Estimate Adequate; RBC Morphology Normal
[2024-04-13] MEDS: cefTRIAXone 1GM/50ML D5W 50 ML IV SCH (08:38)
[2024-04-13 09:00] VITALS: BP 118/58; PULSE 84; RESP 18; TEMP 97.8; O2SAT 96
[2024-04-13 13:00] VITALS: BP 131/62; PULSE 91; RESP 17; TEMP 98.1; O2SAT 96
--- NOTE | 2024-04-13 14:17 | DVHDSRES ---
Discharge Summary Date of Admission Resident Creating Document: NOEMY LORD RESIDENT Apr 07, 2024 at 01:14 Date of Discharge: Apr 13, 2024 Labs/Diagnostic Data: Laboratory Results Test 04/13/24 04:32 04/12/24 06:05 04/11/24 14:00 04/11/24 12:11 White Blood Count 5.7 10^3/uL (4.4-10.8) Red Blood Count 3.95 10^6/uL (4.5-5.90) Hemoglobin 12.1 g/dL (13.5-17.5) Hematocrit 36.4 % (41.0-53.0) Mean Corpuscular Volume 92.1 fL (80.0-100.0) Mean Corpuscular Hemoglobin 30.7 pg (28.0-32.0) Mean Corpuscular Hemoglobin Concent 33.4 g/dL (32.0-36.0) Red Cell Distribution Width 14.6 % (11.8-14.3) Platelet Count 180 10^3/uL (140-450) Mean Platelet Volume 8.6 fL (6.9-10.8) Neutrophils (%) (Auto) % (37.0-80.0) Lymphocytes (%) (Auto) % (10.0-50.0) Monocytes (%) (Auto) % (0.0-12.0) Basophils (%) (Auto) % (0.0-2.0) Neutrophils # (Auto) 10 ^3/uL (1.6-8.6) Lymphocytes # (Auto) 10 ^3/uL (0.4-5.4) Monocytes # (Auto) 10 ^3/uL (0-1.3) Differential Total Cells Counted 100.0 (100) Neutrophils % (Manual) 63 (37.0-80.0) Band Neutrophils % (Manual) 0 Lymphocytes % (Manual) 23 (10.0-50.0) Monocytes % (Manual) 14 (0-12) Eosinophils % (Manual) 0 (0-7) Basophils % (Manual) 0 (0.0-2.0) Metamyelocytes % (manual) 0 Myelocytes % (Manual) 0 Promyelocytes % (Manual) 0 Blast Cells % (Manual) 0 Reactive Lymphocytes 0 Platelet Estimate Adequate Red Blood Cell Morphology Normal Sodium Level 143 mmol/L (136-145) Potassium Level 3.6 mmol/L (3.5-5.1) Chloride Level 110 mmol/L (98-107) Carbon Dioxide Level 23 mmol/L (20-31) Anion Gap 10 (5-15) Blood Urea Nitrogen 13 mg/dL (9-23) Creatinine 0.84 mg/dL (0.700-1.30) Glomerular Filtration Rate Calc 90 mL/min (>90) BUN/Creatinine Ratio 15.5 (10.0-20.0) Serum Glucose 98 mg/dL (74-106) Calcium Level 8.6 mg/dL (8.7-10.4) Total Bilirubin 0.7 mg/dL (0.2-1.0) Aspartate Amino Transferase (AST) 63 U/L (13-40) Alanine Aminotransferase (ALT) 95 U/L (7-40) Alkaline Phosphatase 166 U/L (46-116) Total Protein 4.9 g/dL (5.7-8.2) Albumin 3.2 g/dL (3.2-4.8) Eosinophils (%) (Auto) 1.9 % (0.0-7.0) Eosinophils # (Auto) 0.1 10 ^3/uL (0-0.8) Basophils # (Auto) 0 10 ^3/uL (0-0.2) Nucleated Red Blood Cells 0.0 % Magnesium Level 1.9 mg/dL (1.6-2.6) Test 04/11/24 04:57 04/10/24 19:30 04/10/24 14:10 04/10/24 11:40 Iron Level 23 ug/dL (65-175) Total Iron Binding Capacity 203 ug/dL (250-425) Percent Iron Saturation 11.3 % (20-55) Ferritin 1995.8 ng/mL (22-322) Triglycerides Level 127 mg/dL (< 150) Haptoglobin 290 mg/dL (34-355) Direct Bilirubin 0.2 mg/dL (<0.3) D-Dimer, Quantitative 19.03 mg/L FEU (0.0-0.49) Test 04/10/24 05:55 04/10/24 05:53 04/09/24 12:04 04/09/24 05:30 Reticulocyte Count (auto) 0.23 % (0.5-1.5) Erythrocyte Sedimentation Rate 4 mm/hr (0-20) Gamma Glutamyl Transpeptidase 153 U/L (<73) C-Reactive Protein High Sensitivity 11.08 mg/dL (<1.0) Lipase 54 U/L (12-53) Prothrombin Time 11.6 sec (9.3-11.8) Prothrombin Time INR 1.10 (0.9-1.15) Activated Partial Thromboplast Time 28.8 SEC (24.5-34.5) Large Platelets Few Lactate Dehydrogenase 429 U/L (120-246) Hepatitis A IgM Antibody Negative Hepatitis A Antibody Total Negative (Negative) Hepatitis B Surface Antigen Negative (Negative) Hepatitis B Surface Antibody Negative (Negative) Hepatitis B Core Total Antibody Negative (Negative) Hepatitis B Core IgM Antibody Negative Hepatitis C Antibody Negative (Negative) Test 04/08/24 15:17 04/07/24 21:00 04/07/24 18:44 04/07/24 11:44 Free Prostate Specific Antigen 2.67 ng/mL (N/A) Percent Free Prostate Specific Ag 15.2 % (.) Prostate Specific Antigen Total 17.6 ng/mL (0.0-4.0) Urine Color Yellow (Yellow) Urine Clarity Turbid (Clear) Urine pH 5.5 (5.0-9.0) Urine Specific Devol 1.027 (1.001-1.035) Urine Protein 1+ (Negative) Urine Ketones Negative (Negative) Urine Blood Negative /uL (Negative) Urine Nitrite Negative (Negative) Urine Bilirubin Negative (Negative) Urine Urobilinogen 2 mg/dL (Negative) Urine Leukocyte Esterase Negative /uL (Negative) Urine RBC <1 /hpf (0 - 3) Urine WBC <1 /hpf (0 - 3) Urine Squamous Epithelial Cells Few /hpf (<5) Urine Bacteria None seen /hpf (None Seen) Urine Mucus Few (None Seen) Urine Yeast (Budding) Occasional /hpf (None Urine Glucose Normal mg/dL (Normal) Urine Opiates Screen Neg (NEGATIVE) Urine Fentanyl Screen Neg (NEGATIVE) Urine Barbiturates Screen Neg (NEGATIVE) Urine Phencyclidine Screen Neg (NEGATIVE) Urine Amphetamines Screen Neg (NEGATIVE) Urine Benzodiazepines Screen Neg (NEGATIVE) Urine Cocaine Screen Neg (NEGATIVE) Urine Cannabinoids Screen Neg (NEGATIVE) Lactic Acid Level 1.1 mmol/L (0.4-2.0) Plasma/Serum Blood Alcohol < 3.0 mg/dL (<10) HIV (1&2) Antibody Negative (Negative) Test 04/07/24 04:06 04/07/24 03:40 04/06/24 22:38 04/06/24 21:33 Influenza Type A Antigen Negative (Negative) Influenza Type B Antigen Negative (Negative) SARS-CoV-2 Antigen (Rapid) Negative (NEGATIVE) Vitamin D 25-Hydroxy 31.9 ng/mL (30.0-100) Thyroid Stimulating Hormone (TSH) 0.33 uIU/mL (0.55-4.78) Free Thyroxine (T4) Calculated 1.26 ng/dL (0.89-1.76) Free Triiodothyronine (T3) pg/mL 2.35 pg/mL (2.3-4.2) Troponin I High Sensitivity 38 ng/L (</=54) B-Type Natriuretic Peptide 123.23 pg/mL (0-100) Test 04/06/24 21:03 POC Glucose 126 mg/dl (70-106) Other Laboratory Tests 04/13/24 04:32 Final Diagnosis/Problems List # SIRS # Fever of unknown origin, possible viral syndrome # suspected community-acquired pneumonia likely due to Gram +/-bacteria # thrombocytopenia, ruled out TTP # bilateral lower extremity weakness # left knee pain, possible osteoarthrosis # elevated ALP and GGT # 0.7 cm and 1.3 cm cystic pancreatic uncinate lesions # ruled out PE, CT angio negative # hypokalemia # transaminitis # hepatic steatosis and hepatomegaly on liver ultrasound # Ruled out stroke # Prostatomegaly likely BPH Discharge Disposition: Home Discharge Instruct/Medications Diet: Regular Activity: No Restrictions, As Tolerated Follow Up/Referral: Follow up in the D/C clininc in one week on Saturday04/21/2024. Follow up with the PCP in 1-2 weeks Medications: No new medications Discharge Statement: "Patient was advised to return to the ER or call 911 if any headaches, dizziness, shortness of breath, chest pain, abdominal pain, bleeding, fevers, or worsening of medical condition. Patient was counseled about treatment plan, medications, possible side effects, patientverbalized understanding. All questions were answered to the best of my ability. 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
--- NOTE | 2024-04-13 14:50 | DVHDSRES ---
Discharge Summary Date of Admission Resident Creating Document: NOEMY LORD RESIDENT Apr 07, 2024 at 01:14 Date of Discharge: Apr 13, 2024 Admitting Diagnosis #SIRS? , source unknown #Frequent falls due to bilateral leg weakness likely ?dehydration ?medication induced ?vasovagal ?reflex #Sinus tachycardia #Benign prostatic hyperplasia Wounds: no wounds Labs/Diagnostic Data: Laboratory Results Test 04/13/24 14:30 04/13/24 04:32 04/12/24 06:05 04/11/24 14:00 White Blood Count 5.7 10^3/uL (4.4-10.8) Red Blood Count 3.95 10^6/uL (4.5-5.90) Hemoglobin 12.1 g/dL (13.5-17.5) Hematocrit 36.4 % (41.0-53.0) Mean Corpuscular Volume 92.1 fL (80.0-100.0) Mean Corpuscular Hemoglobin 30.7 pg (28.0-32.0) Mean Corpuscular Hemoglobin Concent 33.4 g/dL (32.0-36.0) Red Cell Distribution Width 14.6 % (11.8-14.3) Platelet Count 180 10^3/uL (140-450) Mean Platelet Volume 8.6 fL (6.9-10.8) Neutrophils (%) (Auto) % (37.0-80.0) Lymphocytes (%) (Auto) % (10.0-50.0) Monocytes (%) (Auto) % (0.0-12.0) Basophils (%) (Auto) % (0.0-2.0) Neutrophils # (Auto) 10 ^3/uL (1.6-8.6) Lymphocytes # (Auto) 10 ^3/uL (0.4-5.4) Monocytes # (Auto) 10 ^3/uL (0-1.3) Differential Total Cells Counted 100.0 (100) Neutrophils % (Manual) 63 (37.0-80.0) Band Neutrophils % (Manual) 0 Lymphocytes % (Manual) 23 (10.0-50.0) Monocytes % (Manual) 14 (0-12) Eosinophils % (Manual) 0 (0-7) Basophils % (Manual) 0 (0.0-2.0) Metamyelocytes % (manual) 0 Myelocytes % (Manual) 0 Promyelocytes % (Manual) 0 Blast Cells % (Manual) 0 Reactive Lymphocytes 0 Platelet Estimate Adequate Red Blood Cell Morphology Normal Sodium Level 143 mmol/L (136-145) Potassium Level 3.6 mmol/L (3.5-5.1) Chloride Level 110 mmol/L (98-107) Carbon Dioxide Level 23 mmol/L (20-31) Anion Gap 10 (5-15) Blood Urea Nitrogen 13 mg/dL (9-23) Creatinine 0.84 mg/dL (0.700-1.30) Glomerular Filtration Rate Calc 90 mL/min (>90) BUN/Creatinine Ratio 15.5 (10.0-20.0) Serum Glucose 98 mg/dL (74-106) Calcium Level 8.6 mg/dL (8.7-10.4) Total Bilirubin 0.7 mg/dL (0.2-1.0) Aspartate Amino Transferase (AST) 63 U/L (13-40) Alanine Aminotransferase (ALT) 95 U/L (7-40) Alkaline Phosphatase 166 U/L (46-116) Total Protein 4.9 g/dL (5.7-8.2) Albumin 3.2 g/dL (3.2-4.8) Eosinophils (%) (Auto) 1.9 % (0.0-7.0) Eosinophils # (Auto) 0.1 10 ^3/uL (0-0.8) Basophils # (Auto) 0 10 ^3/uL (0-0.2) Nucleated Red Blood Cells 0.0 % Magnesium Level 1.9 mg/dL (1.6-2.6) Test 04/11/24 12:11 04/11/24 04:57 04/10/24 19:30 04/10/24 14:10 Iron Level 23 ug/dL (65-175) Total Iron Binding Capacity 203 ug/dL (250-425) Percent Iron Saturation 11.3 % (20-55) Ferritin 1995.8 ng/mL (22-322) Triglycerides Level 127 mg/dL (< 150) Haptoglobin 290 mg/dL (34-355) Direct Bilirubin 0.2 mg/dL (<0.3) Test 04/10/24 11:40 04/10/24 05:55 04/10/24 05:53 04/09/24 12:04 D-Dimer, Quantitative 19.03 mg/L FEU (0.0-0.49) Reticulocyte Count (auto) 0.23 % (0.5-1.5) Erythrocyte Sedimentation Rate 4 mm/hr (0-20) Gamma Glutamyl Transpeptidase 153 U/L (<73) C-Reactive Protein High Sensitivity 11.08 mg/dL (<1.0) Lipase 54 U/L (12-53) Prothrombin Time 11.6 sec (9.3-11.8) Prothrombin Time INR 1.10 (0.9-1.15) Activated Partial Thromboplast Time 28.8 SEC (24.5-34.5) Test 04/09/24 05:30 04/08/24 15:17 04/07/24 21:00 04/07/24 18:44 Large Platelets Few Lactate Dehydrogenase 429 U/L (120-246) Hepatitis A IgM Antibody Negative Hepatitis A Antibody Total Negative (Negative) Hepatitis B Surface Antigen Negative (Negative) Hepatitis B Surface Antibody Negative (Negative) Hepatitis B Core Total Antibody Negative (Negative) Hepatitis B Core IgM Antibody Negative Hepatitis C Antibody Negative (Negative) Free Prostate Specific Antigen 2.67 ng/mL (N/A) Percent Free Prostate Specific Ag 15.2 % (.) Prostate Specific Antigen Total 17.6 ng/mL (0.0-4.0) Urine Color Yellow (Yellow) Urine Clarity Turbid (Clear) Urine pH 5.5 (5.0-9.0) Urine Specific Crane 1.027 (1.001-1.035) Urine Protein 1+ (Negative) Urine Ketones Negative (Negative) Urine Blood Negative /uL (Negative) Urine Nitrite Negative (Negative) Urine Bilirubin Negative (Negative) Urine Urobilinogen 2 mg/dL (Negative) Urine Leukocyte Esterase Negative /uL (Negative) Urine RBC <1 /hpf (0 - 3) Urine WBC <1 /hpf (0 - 3) Urine Squamous Epithelial Cells Few /hpf (<5) Urine Bacteria None seen /hpf (None Seen) Urine Mucus Few (None Seen) Urine Yeast (Budding) Occasional /hpf (None Urine Glucose Normal mg/dL (Normal) Urine Opiates Screen Neg (NEGATIVE) Urine Fentanyl Screen Neg (NEGATIVE) Urine Barbiturates Screen Neg (NEGATIVE) Urine Phencyclidine Screen Neg (NEGATIVE) Urine Amphetamines Screen Neg (NEGATIVE) Urine Benzodiazepines Screen Neg (NEGATIVE) Urine Cocaine Screen Neg (NEGATIVE) Urine Cannabinoids Screen Neg (NEGATIVE) Lactic Acid Level 1.1 mmol/L (0.4-2.0) Test 04/07/24 11:44 04/07/24 04:06 04/07/24 03:40 04/06/24 22:38 Plasma/Serum Blood Alcohol < 3.0 mg/dL (<10) HIV (1&2) Antibody Negative (Negative) Influenza Type A Antigen Negative (Negative) Influenza Type B Antigen Negative (Negative) SARS-CoV-2 Antigen (Rapid) Negative (NEGATIVE) Vitamin D 25-Hydroxy 31.9 ng/mL (30.0-100) Thyroid Stimulating Hormone (TSH) 0.33 uIU/mL (0.55-4.78) Free Thyroxine (T4) Calculated 1.26 ng/dL (0.89-1.76) Free Triiodothyronine (T3) pg/mL 2.35 pg/mL (2.3-4.2) Troponin I High Sensitivity 38 ng/L (</=54) Test 04/06/24 21:33 04/06/24 21:03 B-Type Natriuretic Peptide 123.23 pg/mL (0-100) POC Glucose 126 mg/dl (70-106) Other Laboratory Tests 04/13/24 04:32 Brief Hx & Hospital Course: Patient is a 78-year-old male with past medical history of enlarged prostate ?BPH presented to the hospital with a chief complaint of bilateral lower extremity weakness and mechanical fall. Patient also reported having fever at home. Patient was seen and examined at bedside having bilateral upper extremity strength 5/5 and bilateral lower extremity strength was 4/5. Imaging head CT without contrast which showed no evidence of acute intracranial abnormality and brain MRI without contrast which was unremarkable. On the labs patient had thrombocytopenia with decreasing platelet count. Peripheral blood smear was done which showed normocytic normochromic red cells, no schistocytes, platelets diminished and some large platelets seen, some increased number of monocytes. Heme-Onc were consulted who recommended continuing supportive care with antibiotics and no indications of TTP, assess thrombocytopenia could be secondary to possible infection. Indirect bilirubin, reticulocyte count, direct Rona, haptoglobin were within normal limits. On day 3 of admission patient had transaminitis with subsequent elevation in the AST and ALT elevation of the ALP and GGT also elevated. Elevated CRP. Liver ultrasound was done showing no evidence of gallstones or acute cholecystitis. No acute intracranial abnormality seen on abdominopelvic CT. As the patient was still having fevers till day 3 and 4 of admission infectious disease were consulted for fever of unknown origin. Multiple lab workup was done with a viral serologies for which patient will be followed up in the outpatient clinic. Patient's lower extremity weakness improved with physical therapy working with the patient and recommended the patient to be discharged with a front wheel walker for recovery. Patient's fever resolved and is likely weakness has improved. Patient had mild-moderate knee effusion without signs of inflammation. Patient discharged in stable condition to home advised to follow up in the discharge clinic on 04/21/2024 for review of labs and further management. Review of systems Patient seen and examined at the bedside. Patient was alert and oriented to time, place and person. No episode of fever overnight, patient reports improved strength in his lower extremities and is able to walk comfortably with a walker. Platelet levels went up currently at 180. Replaced potassium. Patient's vitals are stable. AST, ALT and ALP trended down. Consults/Reason for consult Heme-Onc consultation due to thrombocytopenia and suspected ITP/TTP Infectious disease consult for fever of unknown origin Operations or Procedures Head CT without contrast showing no acute intracranial abnormality Brain MRI without contrast unremarkable Liver Ultrasound shows no sonographic evidence of gallstones or acute cholecystitis, hepatic steatosis and hepatomegaly seen. Renal ultrasound shows lobulated cyst in the right upper lobe, enlarged prostate CT angiography showing no evidence of pulmonary embolism, aortic aneurysm or dissection CT abdomen pelvis without contrast showing no acute intra-abdominal abnormality, hepatic steatosis, normal spleen, no focal fluid collection, prostatomegaly Left knee x-ray showing no evidence of acute fracture or dislocation, moderate joint effusion. MRCP without IV contrast showing gallbladder collapsed and grossly within normal limits, common bile duct unremarkable. 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 Follow up with the PCP in 1-2 weeks Medications: No new medications Discharge Statement: "Patient was advised to return to the ER or call 911 if any headaches, dizziness, shortness of breath, chest pain, abdominal pain, bleeding, fevers, or worsening of medical condition. Patient was counseled about treatment plan, medications, possible side effects, patientverbalized understanding. All questions were answered to the best of my ability. 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
[2024-04-13] MEDS ORDERED: TAMS-35 PO (15:43)
--- NOTE | 2024-04-13 16:08 | DVHPN2 ---
Consult Progress Note Date Seen: Apr 13, 2024 Subjective Patient reports: No new complaints (strength is back to baseline , tolerating food well , no longer having weakness ) Objective vital signs Vital Sign Date Time Temp Pulse Resp B/P (MAP) Pulse Ox O2 Delivery O2 Flow Rate FiO2 04/13/24 13:00 98.1 91 17 131/62 (85) 96 98.1 04/13/24 08:00 Room Air* 0 21 Total Intake and Output 04/12/24 04/12/24 04/13/24 15:00 23:00 07:00 Intake Total 120 ml 520 ml 650 ml Output Total 100 ml 425 ml Balance 120 ml 420 ml 225 ml medications Current Medications Medications Dose Ordered Sig/Antonette Route Start Time Stop Time Status Last Admin Dose Admin Ondansetron HCl 4 mg Q4HP PRN IV 04/07/24 01:15 Morphine Sulfate 2 mg Q4HPRN PRN IV 04/07/24 01:15 Nitroglycerin 0.4 mg Q5MINP PRN SL 04/07/24 01:15 Morphine Sulfate 2 mg Q30M PRN IV 04/07/24 01:15 Tamsulosin HCl 0.4 mg QPM PO 04/07/24 18:00 04/12/24 17:10 0.4 MG Labetalol HCl 10 mg Q4HP PRN IV 04/07/24 18:15 Ibuprofen 400 mg Q4HPRN PRN PO 04/08/24 10:30 Physical Exam: General:?NAD, well-appearing Neck:?Supple. No masses. HEENT:?PERRL. Normal lids and conjunctiva. Moist mucous membranes. Oropharynx without lesions, exudates, or excessive erythema. Normal appearance of the external aspects of the nose and ears. Heart:?Regular rhythm, normal rate. No murmur. No lower extremity edema. Lungs:?Normal respiratory effort. Clear to auscultation bilaterally. No wheezes. No crackles. Abdomen:?Soft. Non-tender. Non-distended. No masses or abdominal hernia. MSK:?5/5 strength in upper and lower extremities. No digital cyanosis. Normal tone in all 4 limbs. Skin:?Warm and dry, no rashes. Neuro:?Alert and oriented. No facial droop or slurred speech. Extra-ocular movements intact. Sensation intact to soft touch in all 4 limbs. Psych:?Appropriate mood. Full affect. Oriented to person, place, time, and situation. laboratory and microbiology Laboratory Tests 04/13/24 04:32 Test 04/13/24 04:32 Range/Units Serum Glucose 98 74-106 mg/dL Problem List/Assessment/Plan Problems(with codes): (1) Lower extremity weakness (2) Frequent falls (3) Thrombocytopenia (4) Elevated liver enzymes (5) Fever of unknown origin (6) Elevated ferritin Problem List/Assessment/Plan ID Problem List: - acute generalized weakness - acute lower extremity weakness - falls - thrombocytopenia - elevated liver enzymes - fever of unknown origin - elevated ferritin Assessment This is a 78 y.o. male with a past medical history of BPH recently started on medication, type 1 diabetes mellitus, cardiovascular disease, hypertension, and cataract surgery, who presents with acute generalized weakness. The patient began experiencing weakness in his lower extremities yesterday, leading to tripping and mechanical falls due to inability to lift his legs. He has not had episodes like this before. He continues to feel unsteady but reports improvement after a day or two of antibiotics. He also reports nausea and fevers up to 102.6F on admission, now resolved. Laboratory studies reveal thrombocytopenia with platelet counts decreasing from 112 on admission to 74, elevated liver enzymes (ALT 96, AST 123, alkaline phosphatase 143), elevated ferritin (2088.1), and elevated CRP (11.8). LFTs are rising. Imaging studies including chest X-ray and head CT are unremarkable. Brain MRI is non-contributory. Liver ultrasound shows hepatic steatosis and hepatomegaly. Renal ultrasound shows an enlarged prostate. Blood cultures were obtained prior to initiation of antibiotics. Hepatitis panel, HIV, COVID-19, and influenza tests are negative. 04/11: repeat blood cultures continue to be negative for 24 hours, Ct of abdomen and pelvis show no acute intracranial hepatosplenomegaly , plateletes are low at 74, hemoglobin is 12.8 04/12: blood cultures remain no growth to date , iron levels remain low, ferratin remains elevated at 2000, LFTs are slowly rising and plateletes has improved to 124 04/13: Platelests are back to 120 , LTFs are coming down. patient appears to be overall improving Plan: - Stop ceftriaxone - unlikely that bacterial infection is the ideology of patients symptoms , would further evaluate for autoimmune conditions - A ans A is pending , would also screen for B12 levels , mcduffie levels , Celiacs disease , check for iron deficiency , acute porphyria with a urine porphyrine test - follow up with alll serologies as outpatient - patient follow up with infectious disease in 2 weeks to ensure platelets have fully recovered and other viral infections - will fu on viral serologies for EBV, CMV, parvovirus B19, and HSV - consider Consult Gastroenterology if LFTs continue to rise and thrombocytopenia worsens - Monitor LFTs and platelet counts closely - Consider testing for tick-borne and mosquito illnesses (Lyme disease, rickettsial infections, dengue/chikungunya, [place] virus ) despite negative exposure history - Monitor for signs of HLH, although ferritin is below typical thresholds - tranfusion if plts drop below 50, or if there are signs of bleeding - Continue to monitor neurological status and strength improvement Plan discussed with: FAB Keith MD Apr 13, 2024 16:08
[2024-04-13 17:35] VITALS: BP 124/78; PULSE 78; RESP 20; TEMP 98.3; O2SAT 97
[2024-04-14 02:06] LABS: CMV IgG Antibody >10.00 U/mL (0.00-0.59); CMV IgM Antibody <30.0 AU/mL (0.0-29.9)
[2024-04-14 02:06] LABS: EBV Ab VCA IgM Antibody <36.0 U/mL (0.0-35.9)
[2024-04-14 08:06] LABS: Immunoglobulin A 79 mg/dL (61-437)
[2024-04-14 12:35] LABS: Folate (Folic Acid) 35.36 ng/mL (>5.38)
[2024-04-16 06:06] LABS: Endomysial IgA Antibody Negative (Negative)
[2024-04-17 10:06] LABS: t-Transglutaminase (tTG) IgA <2 U/mL (0-3)
[2024-04-18 07:06] LABS: Aspergillus flavus Negative (Neg:<1:1); Aspergillus fumigatus Negative (Neg:<1:1); Aspergillus niger Negative (Neg:<1:1); Blastomyces Antibody DID Negative (Neg:<1:1)
== END 2024-04-13 17:57 | disposition home or self-care (01) | DRG 641 ==
LOC: ER 20:47 → TELE 04-07 01:14 → TELE-WESTW 04-07 10:28 → WEST WING 04-07 23:18
PROVIDERS: ADMIT Student in an Organized Health Care Education/Training Program; ATTEND Student in an Organized Health Care Education/Training Program
DX: E86.0 Dehydration (principal); R65.10 Systemic inflammatory response syndrome (SIRS) of non-infectious origin without acute organ dysfunction; D69.6 Thrombocytopenia, unspecified; Z20.822 Contact with and (suspected) exposure to COVID-19; R29.6 Repeated falls; E87.6 Hypokalemia; N40.0 Benign prostatic hyperplasia without lower urinary tract symptoms; I10 Essential (primary) hypertension; K76.0 Fatty (change of) liver, not elsewhere classified; R74.01 Elevation of levels of liver transaminase levels; I25.10 Atherosclerotic heart disease of native coronary artery without angina pectoris; E10.9 Type 1 diabetes mellitus without complications; B34.9 Viral infection, unspecified; M17.12 Unilateral primary osteoarthritis, left knee; Z88.1 Allergy status to other antibiotic agents; Z80.3 Family history of malignant neoplasm of breast; Z82.49 Family history of ischemic heart disease and other diseases of the circulatory system; Z79.4 Long term (current) use of insulin
CPT/HCPCS: 36415; 70450; 70551; 71045; 71275; 73564; 74176; 74181; 76705; 76775; 80048; 80053; 80074; 80307; 80320; 81001; 82248; 82306; 82607; 82728; 82746; 82784; 82962; 82977; 83010; 83516; 83540; 83550; 83605; 83615; 83690; 83735; 83880; 84154; 84439; 84443; 84478; 84481; 84484; 85007; 85025; 85027; 85045; 85379; 85610; 85652; 85730; 86038; 86141; 86255; 86606; 86612; 86635; 86644; 86645; 86664; 86698; 86703; 86704; 86706; 86708; 86803; 86880; 87040; 87070; 87081; 87086; 87205; 87340; 87426; 87804; 93005; 93306; 97110; 97116; 97163; 97530; G0378; J1885; J2003

== ENCOUNTER → 2024-04-21 | Outpatient (CLI) | payer MEDICARE ==
[~2024-04-21] MED LIST: TAMS-35 PO
--- NOTE | 2024-04-21 14:41 | DVHSR ---
APPROVED REPORT EXAM: Two-dimensional and M-mode echocardiogram with Doppler and color Doppler. DIMENSIONS LVDd3.6 (3.8-5.7cm)LA (2D)4.3 (1.9-4.0cm)Aortic Root3.6 (2.0-3.7cm) LVDs2.5 (2.5-4.0cm)LA (MM) (1.9-4.0cm)Aortic Cusp Exc1.9 (1.5-2.0cm) EF (%) 59.2 (55-70%)Rt. Atrium4.7 (1.9-4.0cm)Asc. Aorta cm IVSd1.3 (0.7-1.1cm)RV (D)4.0 (1.8-2.4cm) PWd1.5 (0.7-1.1cm) Mitral Valve MitralMitral Stenosis E wave0.61m/sMV Mean GR.mmHg A wave0.93m/sMV Peak GR.105mmHg E/A ratio0.72D MVAcm2 DECEL [id number] 1/2 [place] Aortic Valve Aortic ValveAortic Stenosis V11.10m/Henrry Mean GR.3mmHg V21.29m/Henrry Peak GR.7mmHg AI P 1/2 [id number] Pulmonic Valve V21.00m/s Tricuspid Valve TR Velocity2.39m/s [id number] LEFT VENTRICLE The Ejection Fraction is >55%. ATRIA The left atrium is mildly dilated. The right atrium is mildly dilated. MITRAL VALVE The mitral valve is normal in structure and function. Mitral regurgitation is moderate. PULMONIC VALVE The pulmonic valve is not well visualized. TRICUSPID VALVE The tricuspid valve is grossly normal. There is mild tricuspid regurgitation. AORTIC VALVE The aortic valve opens well. There is moderate aortic regurgitation. GREAT VESSELS The aortic root is normal size. PERICARDIAL EFFUSION There is no pericardial effusion. Conclusion ef >55% conc lvh mod mr mod ai mild av calcification lae yeny
== END | disposition home or self-care (01) ==
LOC: Rad HDHVI 12:59
PROVIDERS: ATTEND Internal Medicine Cardiovascular Disease
DX: I08.3 Combined rheumatic disorders of mitral, aortic and tricuspid valves (principal); I11.9 Hypertensive heart disease without heart failure
CPT/HCPCS: 93306

== ENCOUNTER 2025-02-10 09:59 | Outpatient (CLI) | payer MEDICARE | END 2025-02-10 17:00 | disposition home or self-care (01) | LOC: Rad HDHVI 09:59 | PROVIDERS: ATTEND Internal Medicine Cardiovascular Disease | DX: I08.3 Combined rheumatic disorders of mitral, aortic and tricuspid valves (principal); I11.0 Hypertensive heart disease with heart failure; I50.23 Acute on chronic systolic (congestive) heart failure | CPT/HCPCS: 93306 ==

== ENCOUNTER 2025-02-17 08:54 | Outpatient (CLI) | payer MEDICARE | END 2025-02-17 17:00 | disposition home or self-care (01) | LOC: Rad HDHVI 08:54 | PROVIDERS: ATTEND Internal Medicine Cardiovascular Disease | DX: I11.0 Hypertensive heart disease with heart failure (principal); I50.33 Acute on chronic diastolic (congestive) heart failure | CPT/HCPCS: 93880 ==